=== PATIENT | male | born 1990 | race Caucasian/White ===

== ENCOUNTER 2020-01-17 13:32 | Emergency (ER) | payer BC ==
[~2020-01-17] VITALS: Ht 175.3 cm; Wt 90.3 kg
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
[2020-01-17] MEDS ORDERED: PROPOFOL 200 MG/20 ML VIAL IV ONE ×2 (14:30→15:30)
[2020-01-17] MEDS ORDERED: HYDROMORPHONE INJ 2 MG/ML DISP.SYRIN IM ONE (14:30)
[2020-01-17] MEDS ORDERED: PROPOFOL 20 ML IV ONE (14:36)
[2020-01-17] MEDS ORDERED: HYDROMORPHONE 1 MG/1 ML DISP.SYRIN ONE (14:37)
--- NOTE | 2020-01-17 14:40 | NUR ---
PATIENT PREPARED FOR MODERATE SEDATION, VERBAL CONSENT PROVIDED BY PATIENT, HE'S UNABLE TO MOVE HIS HANDS. WITNESSED BY 2 RN'S.
--- NOTE | 2020-01-17 15:00 | NUR ---
PATIENT TOLERATED PROCEDURE WELL. BOTH ARMS ARE ON SPLINT. APPLIED SLING ON RIGHT ELBOW.
--- NOTE | 2020-01-17 15:05 | NUR ---
PATIENT A/OX4, VERBALLY RESPONSIVE. NO DISTRESS NOTED.
--- NOTE | 2020-01-17 15:20 | NUR ---
PAGED DR ROY
--- NOTE | 2020-01-17 16:26 | NUR ---
PATIENT AWAKE, ALERT AND ORIENTED X4, BREATHING EVEN AND UNLABORED, NO SOB NOTED. NEEDS ATTENDED. IV removed. Catheter intact and site benign. Pressure and 4x4 applied to site. No bleeding noted. Patient discharged to home in stable condition. Written and verbal after care instructions given. Patient verbalizes understanding of instruction.
[2020-01-17 16:38] VITALS: BP 134/85
== END 2020-01-17 16:38 | disposition home or self-care (01) ==
LOC: ER 13:45
DX: S52.572A Other intraarticular fracture of lower end of left radius, initial encounter for closed fracture (principal); S42.401A Unspecified fracture of lower end of right humerus, initial encounter for closed fracture; S52.611A Displaced fracture of right ulna styloid process, initial encounter for closed fracture; S62.111A Displaced fracture of triquetrum [cuneiform] bone, right wrist, initial encounter for closed fracture; V23.4XXA Motorcycle driver injured in collision with car, pick-up truck or van in traffic accident, initial encounter; Y92.481 Parking lot as the place of occurrence of the external cause; Z20.828 Contact with and (suspected) exposure to other viral communicable diseases; M25.462 Effusion, left knee
CPT/HCPCS: 24600; 25605; 73070 ×2; 73100 ×2; 73110; 73564; 87426; 96374; 99152; 99285; C9803; J1170; J2704; J7030 ×2; G0500

== ENCOUNTER 2020-01-21 13:42 | Inpatient (IN) | payer BC ==
[~2020-01-21] VITALS: Ht 175.3 cm; Wt 83.0 kg
--- NOTE | 2020-01-21 13:56 | NUR ---
PT aox4. pt sent by Dr. Chau (ortho) for pre op, scheduled surgery tomorrow. no c/o pain at this time. awaiting for MD echols
[2020-01-21] MEDS ORDERED: HYDR-4384 PO (14:07)
[2020-01-21 14:44] LABS: BASOPHILS % (AUTO) 0.4 % (0.0-2.0); EOSINOPHILS % (AUTO) 2.1 % (0.0-6.0); HEMATOCRIT 39 % (39-51); HEMOGLOBIN 13.2 g/dL (13.5-17.5); LYMPHOCYTES # (AUTO) 1.3 /CMM (0.8-4.8); LYMPHOCYTES % (AUTO) 18.9 % (20.0-44.0); MEAN CORPUSCULAR HGB CONC 34 g/dl (31.0-36.0); MEAN CORPUSCULAR VOLUME 86 fL (80-96); MONOCYTES # (AUTO) 0.6 /CMM (0.1-1.30); MONOCYTES % (AUTO) 9.2 % (2.0-12.0); NEUTROPHILS # (AUTO) 4.7 /CMM (1.8-8.9); NEUTROPHILS % (AUTO) 69.4 % (43.0-81.0); PLATELET COUNT (AUTO) 315 /CMM (150-450); RED BLOOD CELL COUNT(AUTO) 4.49 MIL/uL (4.5-6.0); WHITE BLOOD COUNT (AUTO) 6.8 K/uL (4.3-11.0)
[2020-01-21 14:49] LABS: CALCIUM, SERUM 8.7 mg/dL (8.5-10.1); CREATININE 0.9 mg/dL (0.6-1.3); POTASSIUM 4.2 mmol/L (3.5-5.1)
[2020-01-21] MEDS ORDERED: MAG HYDROX/AL HYDROX/SIMETH 30 ML UDC PO PRN (15:00)
[2020-01-21] MEDS ORDERED: MAGNESIUM HYDROXIDE 30 ML UDC PO PRN (15:00)
[2020-01-21] MEDS ORDERED: ONDANSETRON HCL/PF 4 MG/2 ML VIAL IVP PRN (15:00)
[2020-01-21] MEDS ORDERED: TEMAZEPAM 15 MG CAPSULE PO PRN (15:00)
[2020-01-21] MEDS ORDERED: Z GUARD REMEDY 2 OZ OINT TP PRN (15:00)
[2020-01-21] MEDS ORDERED: ACETAMINOPHEN 325 MG TABLET PO PRN (15:00)
--- NOTE | 2020-01-21 16:04 | NUR ---
pt in bed, comfortable. no c/o pain or discomfort at this time. all needs attended
--- NOTE | 2020-01-21 16:54 | NUR ---
covid swab test done and sent to lab
--- NOTE | 2020-01-21 17:40 | NUR ---
Patient will go to [facility]
[2020-01-21] MEDS ORDERED: ENOXAPARIN SODIUM 40 MG/0.4 ML DISP.SYRIN SQ SCH (17:51)
--- NOTE | 2020-01-21 17:56 | NUR ---
REPORT GIVEN TO SELENE ALEMAN FOR [facility] 314-2
--- NOTE | 2020-01-21 18:10 | NUR ---
RN NOTES RECEIVED PATIENT FROM E.R, ABLE TO MAKE NEEDS KNOWN. A/O X4. ROOM AIR WITH NO SIGNS OF DISTRESS NOTED AT THIS TIME. PATIENT ORIENTED TO ROOM, UNIT AND STAFF. IV ACCESS ON LEFT AC#20, SL. SAFETY MEASURES INITIATED, BED PLACED IN LOWEST LOCKED POSITION WITH SIDE RAILS UP X2. CALL LIGHT PLACE WITHIN EASY REACH. WILL ENDORSE TO MEAT AND SEAFOOD CLERK NURSE FOR ADMISSION.
[2020-01-21] MEDS: HYDROCODONE/APAP 10/325MG TABLET PO PRN ×2 (18:12→23:06)
[2020-01-21 20:00] VITALS: BP 141/82
[2020-01-21 20:30] VITALS: BP 150/80
[2020-01-21] MEDS: IV NS 0.9% 1,000 ML IV PRN (21:28)
--- NOTE | 2020-01-21 23:16 | NUR ---
MS/TELE/RN LOVENOX NOT ADMINISTERED PATIENT WILL HAVE SURGERY IN THE MORNING.
[2020-01-22] VITALS (7 sets, daily range): BP systolic 142–153; BP diastolic 75–88
--- NOTE | 2020-01-22 02:03 | NUR ---
MS/TELE/RN PATIENT IS SLEEPING AT THIS TIME, APPEAR COMFORTABLE, NO SIGNS OF DISTRESS NOTED, CALL LIGHT IN REACH, WILL CONTINUE TO MONITOR.
--- NOTE | 2020-01-22 06:07 | NUR ---
MS/TELE/RN PATIENT IS STILL SLEEPING AT THIS TIME, APPEAR COMFORTABLE, NO SIGNS OF DISTRESS NOTED, CALL LIGHT IN REACH, ALL NEEDS ATTENDED AT THIS TIME, WILL CONTINUE TO MONITOR.
[2020-01-22 06:49] LABS: BASOPHILS % (AUTO) 0.5 % (0.0-2.0); EOSINOPHILS % (AUTO) 2.9 % (0.0-6.0); HEMATOCRIT 33 % (39-51); HEMOGLOBIN 11.4 g/dL (13.5-17.5); LYMPHOCYTES # (AUTO) 1.7 /CMM (0.8-4.8); LYMPHOCYTES % (AUTO) 28.2 % (20.0-44.0); MEAN CORPUSCULAR HGB CONC 35 g/dl (31.0-36.0); MEAN CORPUSCULAR VOLUME 86 fL (80-96); MONOCYTES # (AUTO) 0.6 /CMM (0.1-1.30); MONOCYTES % (AUTO) 9.8 % (2.0-12.0); NEUTROPHILS # (AUTO) 3.6 /CMM (1.8-8.9); NEUTROPHILS % (AUTO) 58.6 % (43.0-81.0); PLATELET COUNT (AUTO) 294 /CMM (150-450); RED BLOOD CELL COUNT(AUTO) 3.82 MIL/uL (4.5-6.0); WHITE BLOOD COUNT (AUTO) 6.1 K/uL (4.3-11.0)
[2020-01-22 07:05] LABS: CALCIUM, SERUM 7.9 mg/dL (8.5-10.1); CREATININE 0.8 mg/dL (0.6-1.3); PHOSPHORUS 3.7 mg/dL (2.5-4.9); POTASSIUM 3.6 mmol/L (3.5-5.1)
--- NOTE | 2020-01-22 07:30 | NUR ---
RN NOTE THE PATIENT IS RECEIVED IN BED. THE PATIENT IS ALERT AND ORIENTED X4. DENIES PAIN. IN ROOM AIR AND DENIES SOB. RESPIRATION REGULAR AND UNLABORED. LAC G 18 PATENT AND NS INFUSING AT 75ML/HR AND NO S/S INFILTRATION NOTED. BOTH ARM ON SLINGS. BOTH HANDS ARE SWOLLEN BUT THE PATIENT DENIES NUMBING OR TINGLING SENSATION. BED LOW AND LOCKED. SIDE RAILS UP X2. CALL LIGHT WITHIN REACH. WILL CONTINUE TO MONITOR.
[2020-01-22] MEDS: IV NS 0.9% 1,000 ML IV PRN (10:08)
[2020-01-22] MEDS: PANTOPRAZOLE 40 MG VIAL IV SCH (10:12)
[2020-01-22] MEDS: HYDROMORPHONE 1 MG/1 ML DISP.SYRIN IV PRN ×2 (10:13→19:23)
--- NOTE | 2020-01-22 12:20 | NUR ---
RN NOTE THE PATIENT IS TAKEN TO OR BY THE OR TEAM. THE PATIENT LEFT THE UNIT IN STABLE CONDITION.
[2020-01-22] MEDS ORDERED: HYDROMORPHONE INJ 2 MG/ML DISP.SYRIN ONE ×2 (12:24→17:48)
[2020-01-22] MEDS ORDERED: MIDAZOLAM HCL 2 MG/2ML VIAL ONE (12:25)
[2020-01-22] MEDS ORDERED: BACITRACIN 50000 UNITS/VIAL ONE (12:26)
[2020-01-22] MEDS ORDERED: BUPIVACAINE 0.5 % PF 150 MG/30 ML VIAL ONE (12:26)
[2020-01-22] MEDS ORDERED: BUPIVACAINE 0.25% 75 MG/30 ML VIAL ONE (13:38)
[2020-01-22] MEDS ORDERED: HEMOSTATIC MATRIX 8 ML 1 EACH PAD MC ONE (16:11)
--- NOTE | 2020-01-22 17:59 | NUR ---
RN NOTE RECEIVED A CALL ORTHO ELEN REYNAGA STATING THAT NOW THE PATIENT A WOUND VAC AND THE WOUND VAC NOT TO BE REMOVED OR CHANGED BY NURSES.
--- NOTE | 2020-01-22 18:55 | NUR ---
RN NOTE THE PATIENT IS BACK FROM SURGERY. ALERT AND ORIENTED X4. DENIES SOB. RESPIRATION REGULAR AND UNLABORED. LEFT FOOT G20 IV PATENT AND NS INFUSING AT 75ML/HR AND NO S/S INFILTRATION NOTED. WOUND VAC ON RIGHT ARM FUNCTIONING WELL WITH 100 ML OF SEROSANGUINEOUS OUTPUT. BED LOW AND LOCKED. SIDE RAILS UP X3. CALL LIGHT WITHIN REACH. WILL ENDORSE TO SUPERVISOR PROCESS TESTING
--- NOTE | 2020-01-22 20:02 | NUR ---
MS/TELE/RN RECEIVED PATIENT ON BED S/P ORIF RT. ELBOW FRACTURE AND ORIF LEFT WRIST FRACTURE DONE TODAY. PATIENT IS AWAKE, SLEEPY, APPEAR COMFORTABLE, WITH TOLERABLE PAIN LEVEL AT THIS TIME, JUST RECEIVED PAIN MEDICATION GIVEN BY DAY SHIFT RN, NO DISTRESS NOTED, BILATERAL UPPER EXTREMITIES SLING, WOUND VAC TO RT. UPPER EXTREMITY WITH SANGUINEOUS OUTPUT. WILL MONITOR PER POST OF PROTOCOL.
[2020-01-22] MEDS: ANCEF 1 GM/50 ML D5W IV SCH ×4 (21:18→22:23)
[2020-01-22] MEDS: oxyCODONE/APAP (5/325 MG) 1 UDTAB TABLET PO PRN (21:46)
[2020-01-23] VITALS: BP 146/77
[2020-01-23] MEDS: MORPHINE SULFATE INJ 4 MG/ML DISP.SYRIN IV PRN ×2 (02:14→12:31)
[2020-01-23 03:52] VITALS: BP 146/86
[2020-01-23] MEDS: ANCEF 1 GM/50 ML D5W IV SCH ×4 (06:02→06:38)
[2020-01-23] MEDS: oxyCODONE/APAP (5/325 MG) 1 UDTAB TABLET PO PRN ×4 (06:08→20:32)
[2020-01-23] MEDS: IV NS 0.9% 1,000 ML IV PRN ×2 (06:10→20:19)
--- NOTE | 2020-01-23 06:11 | NUR ---
MS/TELE/RN MORNING CARE DONE, PATIENT WAS ABLE TO SIT ON CHAIR AT BEDSIDE WHILE DOING THE BED. BROUGHT BACK TO BED, MADE COMFORTABLE IN BED, TOLERATED WELL, BED ALARM ON. PATIENT IS AWAKE, ALERT, NO CHANGE IN CONDITION, ALL NEEDS ATTENDED AT THIS TIME, WILL CONTINUE TO MONITOR.
--- NOTE | 2020-01-23 07:30 | NUR ---
MS/RN OPENING NOTES Received patient resting in bed, A&O x 4. Denies any pain and discomfort at this time. Breathing even and non-labored on RA. No respiratory or cardiac distress noted. IV access noted on L foot #20, patent and intact, and flushing well. BUE slings in place, both hands slightly still swollen, no tingling or numbness reported. Sensation from all peripheral extremities intact. Bed locked to its lowest position, bed alarm on, side rails x 2 up, call light in hand. Will continue current medical management. Addendum: 01/23/20 at 0738 by NERY BROOKS RN Wound vac noted with sanguinous drainage. Will continue to monitor. Addendum: 01/23/20 at 1924 by NERY BROOKS RN serosanguinous drainage, not sanguinous
[2020-01-23] MEDS: PANTOPRAZOLE 40 MG VIAL IV SCH (08:57)
[2020-01-23] MEDS: ENOXAPARIN SODIUM 40 MG/0.4 ML DISP.SYRIN SQ SCH (08:59)
[2020-01-23 09:18] VITALS: BP 146/88
[2020-01-23] MEDS: HYDROCODONE/APAP 10/325MG TABLET PO PRN (10:13)
--- NOTE | 2020-01-23 11:00 | NUR ---
MS/RN NOTE Dr. Chau at bedside, states patient will go back to OR later this week to remove wound vac and close incision, may be discharged on Tuesday.
--- NOTE | 2020-01-23 12:27 | NUR ---
MS/RN NOTE Patient reports 11/18 aching pain on BLE, requested percocet 5-325: 2 tablets q4h as needed for pain (8-01/18) initially. But changed his mind and would rather take morphine 4 mg q4h IV as needed for breakthrough pain. Returned percocet 5-325 at the return bin, witnessed by [facility] RN.
[2020-01-23 13:03] LABS: BASOPHILS % (AUTO) 0.2 % (0.0-2.0); EOSINOPHILS % (AUTO) 0.5 % (0.0-6.0); HEMATOCRIT 30 % (39-51); HEMOGLOBIN 10.5 g/dL (13.5-17.5); LYMPHOCYTES # (AUTO) 1.3 /CMM (0.8-4.8); LYMPHOCYTES % (AUTO) 14.3 % (20.0-44.0); MEAN CORPUSCULAR HGB CONC 35 g/dl (31.0-36.0); MEAN CORPUSCULAR VOLUME 86 fL (80-96); MONOCYTES # (AUTO) 1.4 /CMM (0.1-1.30); MONOCYTES % (AUTO) 14.6 % (2.0-12.0); NEUTROPHILS # (AUTO) 6.5 /CMM (1.8-8.9); NEUTROPHILS % (AUTO) 70.4 % (43.0-81.0); PLATELET COUNT (AUTO) 331 /CMM (150-450); RED BLOOD CELL COUNT(AUTO) 3.51 MIL/uL (4.5-6.0); WHITE BLOOD COUNT (AUTO) 9.3 K/uL (4.3-11.0)
[2020-01-23 13:39] LABS: ALBUMIN 2.9 g/dL (3.4-5.0); CALCIUM, SERUM 8.2 mg/dL (8.5-10.1); CREATININE 0.9 mg/dL (0.6-1.3); POTASSIUM 3.9 mmol/L (3.5-5.1); TOTAL PROTEIN, SERUM 6.3 g/dL (6.4-8.2)
[2020-01-23 16:10] VITALS: BP 161/74
--- NOTE | 2020-01-23 19:22 | NUR ---
MS/RN CLOSING NOTES Patient sleeping in bed, A&O x 4. All needs met and attended to. VSS, afebrile, no SOB noted. Denies any pain and discomfort at this time, given percocet at 1632. Breathing even and non-labored on RA. No respiratory or cardiac distress noted. IV access noted on L foot #20, patent and intact, and flushing well. BUE slings remain in place, both hands slightly still swollen, no tingling or numbness reported. Right elbow remains at 90 degrees. Wound vac in place, 200 mL serosanguinous output today. Sensation from all peripheral extremities intact. Fall precautions maintained. Will endorse to handyman nurse.
--- NOTE | 2020-01-23 19:45 | NUR ---
RN OPENING NOTES PATIENT RECEIVED RESTING IN BED A/O X 4. STABLE ON RA WITH BREATHING EVEN AND UNLABORED, NO SOB NOTED. NO SIGNS OF ACUTE DISTRESS. NO COMPLAINTS OF PAIN OR DISCOMFORT AT THE MOMENT. IV LOCATED ON L FOOT #20 RUNNING NS @ 75 ML/HR. WOUND VAC NOTED AND IN PLACE ON R ELBOW. BOTH UPPER EXTREMITIES NWB. SAFETY PRECAUTIONS IN PLACE WITH BED IN LOWEST POSITION, CALL LIGHT WITHIN REACH, BREAKS ON, SIDE RAILS UP. WILL CONTINUE TO MONITOR THROUGHOUT THE NIGHT.
[2020-01-23 20:00] VITALS: BP 155/89
[2020-01-24] MEDS: oxyCODONE/APAP (5/325 MG) 1 UDTAB TABLET PO PRN ×5 (00:41→23:54)
--- NOTE | 2020-01-24 06:48 | NUR ---
RN CLOSING NOTES PATIENT RESTING IN BED A/O X 4. STABLE ON RA WITH BREATHING EVEN AND UNLABORED, NO SOB NOTED. NO SIGNS OF ACUTE DISTRESS. NO COMPLAINTS OF PAIN OR DISCOMFORT AT THE MOMENT. IV LOCATED ON L FOOT #20 RUNNING NS @ 75 ML/HR. WOUND VAC NOTED AND IN PLACE ON R ARM TOTAL OF 350 SERASANGEOUS OUTPUT. BOTH UPPER EXTREMITIES NWB. SAFETY PRECAUTIONS IN PLACE WITH BED IN LOWEST POSITION, CALL LIGHT WITHIN REACH, BREAKS ON, SIDE RAILS UP. PAIN MANAGEMENT THROUGHOUT THE NIGHT. ALL NEEDS ATTENDED TO. WILL ENDORSE TO ONCOMING SHIFT ABOUT MANUEL.
--- NOTE | 2020-01-24 07:25 | NUR ---
MS/RN OPENING NOTES RECEIVED PATIENT IN BED SLEEPING EASILY AROUSABLE BY NAME AND LIGHT TOUCH. PATIENT IN NO APPARENT RESPIRATORY DISTRESS NOTED. DENIES PAIN AT THIS TIME. WILL CONTINUE TO MONITOR.
[2020-01-24 08:00] VITALS: BP 154/91
[2020-01-24] MEDS: PANTOPRAZOLE 40 MG VIAL IV SCH (08:41)
[2020-01-24] MEDS: ENOXAPARIN SODIUM 40 MG/0.4 ML DISP.SYRIN SQ SCH (08:42)
[2020-01-24] MEDS: IV NS 0.9% 1,000 ML IV PRN (09:39)
[2020-01-24 10:40] VITALS: BP_SYST 136; BP_SYST 155; BP_DIAS 78; BP_DIAS 84
[2020-01-24 10:45] VITALS: BP 145/81
--- NOTE | 2020-01-24 12:16 | NUR ---
MS/RN NOTES PATIENT COMPLAINED OF PAIN RATED 8/10 PERCOCET 5/325 MG 2 TABS. WILL CONTINUE TO MONITOR.
[2020-01-24 16:00] VITALS: BP 138/83
--- NOTE | 2020-01-24 18:52 | NUR ---
MS/RN CLOSING NOTES PATIENT IS ON BED AWAKE, ALERT AND ORIENTED X4. PATIENT IN NO APPARENT RESPIRATORY DISTRESS NOTED. PATIENT DENIES PAIN AT THIS TIME. IV ACCESS AT LEFT AC # 20 G WITH IV FLUID OF NS 1L AT 75 ML/HR ON AND INFUSING WELL. SEEN AND EXAMINED BY MD WITH ORDERS MADE AND CARRIED OUT. SAFETY PRECAUTIONS WAS IN PLACED. BED IN LOWEST POSITION AND LOCKED. SIDERAILS UP X2. CALL LIGHT WITHIN REACH. WILL ENDORSED TO VALVE TECHNICIAN FOR MANUEL. WILL ENDORSED TO VALVE TECHNICIAN FOR MANUEL.
--- NOTE | 2020-01-24 19:30 | NUR ---
RN NOTES RECEIVED PT. AWAKE ON BED, AOX4, BILATERAL ARM WITH DRESSING AND SLING, WOUND VAC IN PLACE, NOT IN DISTRESS, DENIES PAIN AT THIS TIME,NO SOB, SIDERAILSUPX2, CONTINUE TO MONITOR
[2020-01-24 20:12] VITALS: BP 181/96
[2020-01-24] MEDS: MORPHINE SULFATE INJ 4 MG/ML DISP.SYRIN IV PRN (21:21)
--- NOTE | 2020-01-24 21:24 | NUR ---
RN NOTES COMPLAINED OF RIGHT ARM PAIN- MORPHINE 4 MG IV GIVEN ORDERED, V/S STABLE
--- NOTE | 2020-01-24 23:55 | NUR ---
RN NOTES COMPLAINED OF BILATERAL ARM PAIN- PERCOCET 2 TABS PO GIVEN ORDERED, V/S STABLE
[2020-01-25] MEDS: IV NS 0.9% 1,000 ML IV PRN ×2 (02:40→21:15)
[2020-01-25] MEDS: MORPHINE SULFATE INJ 4 MG/ML DISP.SYRIN IV PRN (06:00)
--- NOTE | 2020-01-25 06:09 | NUR ---
RN NOTES COMPLAINED OF BILATERAL ARM PAIN-MORPHINE 4MG IV GIVEN ORDERED, V/S STABLE
--- NOTE | 2020-01-25 06:43 | NUR ---
RN NOTES SLEEPING BUT AROUSABLE, NOT IN DISTRESS, DENIES PAIN AT THIS TIME, NO SOB,CALL LIGHT WITHIN REACH, SIDERIALSUPX2, PT.NEEDS ATTENDED
--- NOTE | 2020-01-25 07:27 | NUR ---
MS/RN OPENING NOTES PATIENT IS ON BED AWAKE ALERT AND ORIENTED X4. PATIENT DENIES PAIN AT THIS TIME. PATIENT IN NO APPARENT RESPIRATORY DISTRESS NOTED. WILL CONTINUE TO MONITOR.
[2020-01-25] MEDS: ENOXAPARIN SODIUM 40 MG/0.4 ML DISP.SYRIN SQ SCH (09:00)
[2020-01-25] MEDS: PANTOPRAZOLE 40 MG TABLET.DR PO SCH (09:00)
--- NOTE | 2020-01-25 09:30 | NUR ---
WOUND CARE: PT HAS [employer]CI VAC TO RT ARM WITH NEARLY FULL CANISTER 475cc SEROSANGUINOUS DRAINAGE. CANISTER CHANGED. RN NOTIFIED AND SURGEON TO BE NOTIFIED BY WOUND RN. WILL SEE PRN.
--- NOTE | 2020-01-25 09:49 | NUR ---
RENEWABLE ENERGY BROKER RENEWABLE ENERGY BROKER SPOKE TO BARAK IN SURGERY, SHE WILL LET DR ROY KNOW THAT PATIENT'S VAC CANNISTER WAS CHANGED THIS AM, THE SAME CANNISTER THAT WAS PLACED IN OR 01/23/20 AND THE DRNG AMOUNT WAS 475ML'S OF THIS AM.
[2020-01-25] MEDS ORDERED: ANESTHESIA TRAY IN PYXIS 1 EA TRAY MC ONE (11:08)
[2020-01-25] MEDS ORDERED: BUPIVACAINE 0.5 % PF 150 MG/30 ML VIAL ONE (11:10)
[2020-01-25] MEDS ORDERED: BACITRACIN 50000 UNITS/VIAL ONE (11:10)
--- NOTE | 2020-01-25 11:47 | NUR ---
MS/RN NOTES PATIENT IS OUT IN THE UNIT. CHIEF OPERATOR BY OR NURSE. PATIENT IS IN STABLE CONDITION. PATIENT IN NO APPARENT RESPIRATORY DISTRESS NOTED. DENIES PAIN.
[2020-01-25] MEDS ORDERED: HYDROMORPHONE INJ 2 MG/ML DISP.SYRIN ONE (11:54)
[2020-01-25] MEDS ORDERED: MIDAZOLAM HCL 2 MG/2ML VIAL ONE (11:54)
--- NOTE | 2020-01-25 13:40 | NUR ---
MS/RN NOTES PATIENT CAME BACK FROM PACU, RECEIVED REPORT FROM DEBBI MORTON. RESUME PREOP ORDER DIET, ANCEF 1 GM IVPB EVERY 8 HOURS X 3 DOSES, NO WEIGHT BEARING RUE/LUE, ELEVATE, LEAVE IN SLING AT ALL TIMES, WOUND VAC CHANGE Tuesday BY WOUND CARE. NOTED AND CARRIED OUT.
[2020-01-25] MEDS ORDERED: CEFAZOLIN 1 GM VIAL IV SCH (17:00)
--- NOTE | 2020-01-25 18:42 | NUR ---
MS/RN CLOSING NOTES PATIENT IS ON BED. ALERT AND ORIENTED X4. PATIENT DENIES PAIN AT THIS TIME. IV ACCESS AT LEFT FOOT # 20 WITH IV FLUID OF NS 1L AT 75 ML/HR ON AND INFUSING WELL. SEEN AND EXAMINED BY MD WITH ORDERS MADE AND CARRIED OUT. SAFETY PRECAUTION WAS IN PLACED. BED IN LOWEST POSITION AND LOCKED. SIDERAILS UP X2. CALL LIGHT WITHIN REACH. PATIENT IS POSSIBLE DISCHARGED TODAY. WILL ENDORSED TO PAROLE OFFICER FOR MANUEL.
--- NOTE | 2020-01-25 19:30 | NUR ---
MS RN RECEIVE PT IN BED, AWAKE, STABLE A/O X 4 NOT IN DISTRESS, WOUND VAC ONGOING, CONT NO WT BEARING RUE/LUE, ELEVATE SLING AT ALL TIMES. DENIES PAIN AT THIS TIME. EDUCATED PT. SAFETY MEASURES AT ALL TIMES. WILL CONT TO MONITOR
[2020-01-25 20:00] VITALS: BP 152/80
[2020-01-25 20:13] VITALS: BP 152/80
[2020-01-25] MEDS: ANCEF 1 GM/50 ML D5W IV SCH ×2 (21:06)
[2020-01-25] MEDS: oxyCODONE/APAP (5/325 MG) 1 UDTAB TABLET PO PRN (22:03)
[2020-01-26] MEDS: ANCEF 1 GM/50 ML D5W IV SCH ×4 (05:18→13:10)
--- NOTE | 2020-01-26 06:11 | NUR ---
MS RN PT MONITORED ACCORDINGLY, WOUND VAS ORDERED WITH 175ML OUTPUT. ALL NEEDS ATTENDED AND ANTICIPATED, KEPT CLEAN, DRY AND COMFORTABLE. NURSING CARE RENDERED, CONT NWB RUE/LUE AT ALL TIMES,. NO S/S OF IMPAIRED CIRCULATION. 02 SAT WNL R.A. AFEBRILE, DENIES PAIN AT THIS TIME. SAFETY MEASURES AT ALL TIMES. WILL ENDORSE TO NEXT SHIFT.
--- NOTE | 2020-01-26 07:10 | NUR ---
MS RN OPENING NOTES RECEIVED PT AWAKE IN BED IN NO ACUTE SIGNS OF DISTRESS. A/O X 4. ABLE TO MAKE NEEDS KNOWN, DENIES PAIN OR ANY DISCOMFORTS AT THIS TIME. IV ACCESS ON LEFT FOOT G #20 INTACT AND PATENT, IVF OF NS @ 75ML/HR INFUSING WELL. DRESSING ON BOTH ARMS C/D/I. SLINGS IN PLACE AND WOUND VAC ON RIGHT ARM ONGOING. SAFETY MEASURES IN PLACE. BED IN LOWEST LOCKED POSITION W/ SR UP X2. CALL LIGHT W/IN REACH. WILL CONT TO MONITOR
[2020-01-26 08:00] VITALS: BP 137/89
[2020-01-26] MEDS: PANTOPRAZOLE 40 MG TABLET.DR PO SCH (08:09)
[2020-01-26] MEDS: oxyCODONE/APAP (5/325 MG) 1 UDTAB TABLET PO PRN ×3 (08:09→22:20)
[2020-01-26] MEDS: ENOXAPARIN SODIUM 40 MG/0.4 ML DISP.SYRIN SQ SCH (08:10)
--- NOTE | 2020-01-26 08:13 | NUR ---
RN NOTES PT C/O ACHING AND SHARP PAIN ON HIS RIGHT AND LEFT ARM WITH SCALE OF 8/10. PRN PERCOCET 5/325MG X2 TABS GIVEN AT 0809. WILL CONTINUE TO MONITOR AND REASSESS PT.
--- NOTE | 2020-01-26 10:51 | NUR ---
RN NOTES WOUND VAC CANISTER NOTED FULL WITH SANGUINOUS DRAINAGE. CANISTER CHANGED AND CONTINUES ON WOUND VAC AT PRESCRIBED SETTINGS. WILL CONTINUE TO MONITOR.
--- NOTE | 2020-01-26 15:49 | NUR ---
RN NOTES PT C/O ACHING AND SHARP PAIN ON B/L ARMS WITH SCALE OF 8/10. PRN PERCOCET 5/325MG X2 TABS GIVEN AT 1547. WILL CONTINUE TO MONITOR AND REASSESS PT.
[2020-01-26 16:00] VITALS: BP 126/90
--- NOTE | 2020-01-26 18:39 | NUR ---
MS RN CLOSING NOTES PT SITTING ON CHAIR BY BEDSIDE AT THIS TIME. A/O X 4. ABLE TO MAKE NEEDS KNOWN. ON ROOM AIR, BREATHING EVEN AND UNLABORED, NO SOB NOTED THROUGHOUT THE DAY. IV ACCESS ON LEFT FOOT G #20 INTACT AND PATENT, IVF OF NS @ 75ML/HR INFUSING WELL, NO S/S OF INFILTRATION AT SITE NOTED. DRESSING ON BOTH ARMS C/D/I. SLINGS IN PLACE TO BOTH ARMS. WOUND VAC ON RIGHT ARM IN PROGRESS AND NOTED WITH SANGUINOUS DRAINAGE, OUTPUT RECORDED. ALL NEEDS AND CARE ATTENDED WELL. SAFETY MEASURES IN PLACE: CALL LIGHT W/IN REACH. WILL ENDORSE MANUEL TO INCOMING NIGHT NURSE.
--- NOTE | 2020-01-26 19:30 | NUR ---
RN OPENING NOTE RECEIVED PATIENT SEATED AT CHAIR, A0 X 4, COMPLAINTS OF TOLERABLE LEVEL OF PAIN, NO S/SX OF ACUTE DISTRESS AT THIS TIME. NO SOB NOTED. PATIENT'S BREATHING IS EVEN AND UNLABORED, SATURATING 99% ON ROOM AIR, HR IS 75. NOTED IV SITE AT LEFT FOOT G20 WITH NS AT 75 ML/HR, IV LINE PATENT AND FLUSHING WELL, NO S/S OF INFECTION OR INFILTRATION. RIGHT ARM WOUND VAC INTACT, LEFT HAND POST OP WOUND DRESSING DRY AND INTACT, ARM SLING MAINTAINED AT ALL TIMES. PATIENT IS AMBULATORY BUT NEEDS ASSISTANCE WITH URINATION. SAFETY MEASURES IMPLEMENTED PER PROTOCOL. HEAD OF BED ELEVATED. BED IS LOCKED, IN LOWEST POSITION AND SIDE RAILS UP. CALL LIGHT WITHIN REACH OF THE PATIENT. NON WEIGHT BEARING OF BUE MAINTAINED. WILL CONTINUE TO MONITOR AND REASSESS FOR ANY CHANGES.
[2020-01-26 20:00] VITALS: BP 150/80
[2020-01-27] MEDS: IV NS 0.9% 1,000 ML IV PRN (04:40)
--- NOTE | 2020-01-27 07:30 | NUR ---
MS RN NOTES PATIENT RECEIVED IN BED, ALERT AND ORIENTED X4. ON ROOM AIR WITH NO SIGNS OF RESPIRATORY DISTRESS WITH NON-LABORED EVEN BREATHING, AND NO SOB NOTED. SKIN WARM AND DRY TO TOUCH, BILATERAL SLINGS IN PLACE. IV ACCESS INTACT AND PATENT ON LEFT FOOT, INFUSING IV FLUIDS AT 75ml/hr. WOUND VAC IN PLACE, WITH 300mL, OUTPUT. PATIENT PRESENTS WITH NO SIGNS OF PAIN OR DISCOMFORT AT THIS TIME. SAFETY PRECAUTIONS IN PLACE WITH BED LOCKED, BED IN THE LOWEST POSITION, BILATERAL SIDE RAILS UP, BED ALARM ON, AND CALL LIGHT WITHIN EASY REACH. WILL CONTINUE TO MONITOR PATIENT.
[2020-01-27 08:00] VITALS: BP 164/99
[2020-01-27] MEDS: PANTOPRAZOLE 40 MG TABLET.DR PO SCH (08:25)
[2020-01-27] MEDS: ENOXAPARIN SODIUM 40 MG/0.4 ML DISP.SYRIN SQ SCH (08:26)
[2020-01-27] MEDS: oxyCODONE/APAP (5/325 MG) 1 UDTAB TABLET PO PRN ×2 (08:27→18:10)
[2020-01-27 08:31] VITALS: BP 164/99
[2020-01-27 11:30] VITALS: BP 141/79
[2020-01-27 16:56] VITALS: BP 163/88
--- NOTE | 2020-01-27 18:35 | NUR ---
MS RN NOTES PATIENT IN BED RESTING COMFORTABLY, ALERT AND ORIENTED X 4.ON ROOM AIR WITH NO SIGNS OF RESPIRATORY DISTRESS PRESENT WITH EVEN NON-LABORED BREATHING AND NO SOB NOTED. IV ACCESS INTACT AND PATENT CURRENTLY INFUSING IV FLUIDS. MET ALL OF PATIENT'S NEEDS. PATIENT PRESENTS WITH NO SIGNS OF PAIN OR DISCOMFORT AT THIS TIME. WOUND VAC SECURED IN PLACE AND PATENT WITH 400 mL STEPHANY COLOR OUTPUT. SAFETY PRECAUTIONS IN PLACE WITH BED LOCKED, BED IN THE LOWEST POSITION, BILATERAL SIDE RAILS UP, BED ALARM ON AND CALL LIGHT WITHIN EASY REACH. WILL ENDORSE PLAN OF CARE TO UPCOMING NURSE.
--- NOTE | 2020-01-27 19:50 | NUR ---
MS/RN OPENING NOTES RECEIVED PATIENT IS BED RESTING. PATIENT IS ALERT AND ORIENTED X 4. NO SIGNS OF SOB OR RESPIRATORY DISTRESS NOTED. PATIENT HAS IV ACCESS ON LEFT FOOT INTACT FLUSHING WELL. PATIENT HAS WOUND VAC IN PLACE DRAINING STEPHANY CLEAR. PATIENT STATES NO PAIN AT THIS TIME. PATIENT HAS SLINGS IN PLACE BILATERAL ARMS. SAFETY MEASURES ARE IN PLACE BED LOCKED AND IN LOW POSITION, SIDE RAILS UP X 2, CALL LIGHT WITHIN REACH. WILL CONTINUE TO MONITOR.
[2020-01-27 20:00] VITALS: BP 160/81
[2020-01-28] MEDS: IV NS 0.9% 1,000 ML IV PRN (02:53)
[2020-01-28] MEDS: MORPHINE SULFATE INJ 4 MG/ML DISP.SYRIN IV PRN (04:58)
--- NOTE | 2020-01-28 06:45 | NUR ---
MS/RN CLOSING NOTES PATIENT IS BED RESTING. PATIENT IS ALERT AND ORIENTED X 4. NO SIGNS OF SOB OR RESPIRATORY DISTRESS NOTED. PATIENT HAS IV ACCESS ON LEFT FOOT INTACT FLUSHING WELL RUNNING NS AT 75CC/HR. PATIENT HAS WOUND VAC IN PLACE DRAINING STEPHANY CLEAR, CHANGED DURING SHIFT 500CC, CURRENT OUTPUT 50CC. PATIENT STATES NO PAIN AT THIS TIME. PATIENT HAS SLINGS IN PLACE BILATERAL ARMS. SAFETY MEASURES ARE IN PLACE BED LOCKED AND IN LOW POSITION, SIDE RAILS UP X 2, CALL LIGHT WITHIN REACH. WILL ENDORSE CARE TO DAY SHIFT.
--- NOTE | 2020-01-28 07:12 | NUR ---
MS RN OPENING NOTES RECEIVED PT AWAKE, A/O X 4. ABLE TO MAKE NEEDS KNOWN, DENIES PAIN OR ANY DISCOMFORTS AT THIS TIME. ON ROOM AIR, BREATHING EVEN AND UNLABORED. IV ACCESS ON LEFT FOOT G #20 INTACT AND PATENT, IVF OF NS @ 75ML/HR INFUSING WELL, NO S/S OF INFILTRATION AT SITE NOTED. DRESSING ON BOTH ARMS C/D/I. SLINGS IN PLACE TO BOTH ARMS AND WOUND VAC ON RIGHT ARM ONGOING ORDERED. SAFETY MEASURES IN PLACE: BED IN LOWEST LOCKED POSITION W/ SR UP X2. CALL LIGHT W/IN REACH. WILL CONTINUE TO MONITOR
[2020-01-28 08:34] VITALS: BP 155/90
[2020-01-28] MEDS: PANTOPRAZOLE 40 MG TABLET.DR PO SCH (09:00)
[2020-01-28] MEDS: ENOXAPARIN SODIUM 40 MG/0.4 ML DISP.SYRIN SQ SCH ×2 (09:00→10:34)
--- NOTE | 2020-01-28 09:10 | NUR ---
WOUND CARE: PT SEEN FOR WOUND VAC DRESSING CHANGE PER DR ROY ORDER BUT PT REFUSED. PT STATED THAT HE WAS GOING TO SURGERY TODAY FOR WOUND CLOSURE (ALTHOUGH THERE IS NO ORDER TO THAT EFFECT). DR ROY CALLED BY STRADDLE TRUCK DRIVER AND PT'S RN AND MSG LEFT. TRACK PRODUCTION ENGINEER AWARE. AWAITING CALL FROM DR ROY. VAC FUNCTIONING WELL AT 125mmHg CONTINUOUS SETTING. THERE IS 80cc IN CANISTER AT THIS TIME (SEROSANGUINOUS DRAINAGE) AND FULL CANISTER WAS CHANGED AT THE CHANGE OF SHIFT THIS AM PER RN (500cc).
--- NOTE | 2020-01-28 09:13 | NUR ---
RN NOTES PT REFUSED TO EAT BREAKFAST AND TO TAKE HIS AM MEDS, SAME REFUSED TO HAVE HIS WOUND VAC DRESSING TO BE CHANGED BY WOUND NURSE DELFINA THIS MORNING. HE VERBALIZED THAT DR ROY PROMISED HIM LAST TUESDAY (01/25/20) THAT HE WILL SUTURE/CLOSE HIS WOUND ON HIS LEFT ARM TODAY BUT THERE'S NO ORDER SEEN ON THE COMPUTER. I AND WOUND NURSE DELFINA CALLED DR ROY OFFICE ( EXCHANGE), LEFT MESSAGE TO SENIOR TAX ACCOUNTANT AND SHE SAID THAT SHE WILL RELAY MESSAGE TO DR ROY. AWAITING FOR DR ROY RETURN CALL.
[2020-01-28] MEDS: oxyCODONE/APAP (5/325 MG) 1 UDTAB TABLET PO PRN ×2 (12:02→20:43)
--- NOTE | 2020-01-28 12:50 | NUR ---
WOUND CARE: RECEIVED ORDER TO CHANGE WOUND VAC DRESSING FROM DR ROY. SKIN PREP AND VAC DRAPE USED FOR PERIWOUND PROTECTION, OIL EMULSION USED FOR TENDON PROTECTION, THEN GRANUFOAM TO WOUND (ONE PIECE). VAC AT 125mmHg CONTINUOUS SETTING. DRAINAGE IN CANISTER IS SEROSANGUINOUS ORANGE/RED APPROX 100cc. ARM KEPT IN SPLINT AND WRAPPED GENTLY WITH BROOKS. PT TOLERATED WELL. Addendum: 01/28/20 at 1257 by DELFINA ROLON WNDNU WOUND MEASUREMENT RT ARM WOUND 18CM X 10CM X 0.1CM.
--- NOTE | 2020-01-28 13:51 | NUR ---
RN NOTES ASSISTED WOUND NURSE DELFINA TO CHANGE WOUND VAC DRESSING ON RIGHT ARM. PHOTO TAKEN AND FILED ON HIS CHART. WOUND VAC CONTINUES ON 125MMHG WITH SANGUINOUS DRAINAGE NOTED. WILL CONTINUE TO MONITOR.
[2020-01-28 16:00] VITALS: BP 152/88
--- NOTE | 2020-01-28 16:59 | NUR ---
RN NOTES CANDY HENSON CAME AND SPOKE TO PT THAT DR ROY WILL DO SURGICAL CLOSURE ON PT'S RIGHT ARM NOT TOMORROW BUT ON Tuesday01/31/20, NO SCHEDULE TIME YET. NPO WILL BE ENFORCED POST MIDNIGHT ON TUESDAY. WILL ENDORSE TO INCOMING NURSE.
--- NOTE | 2020-01-28 18:43 | NUR ---
MS RN CLOSING NOTES PT AWAKE AND RESTING IN BED. A/O X 4. ABLE TO MAKE NEEDS KNOWN. ON ROOM AIR, BREATHING EVEN AND UNLABORED. IV ACCESS ON LEFT FOOT G #20 INTACT AND PATENT, IVF OF NS @ 75ML/HR INFUSING WELL, NO S/S OF INFILTRATION AT SITE NOTED. DRESSING ON BOTH ARMS C/D/I. SLINGS IN PLACE TO BOTH ARMS AND WOUND VAC ON RIGHT ARM CONTINUOS AT 125 MM/HG PRESSURE WITH 100ML OF SANGUINOUS DRAINAGE NOTED THIS SHIFT. ALL NEEDS AND CARE ATTENDED WELL. SAFETY MEASURES KEPT IN PLACE: BED IN LOWEST LOCKED POSITION W/ SR UP X2. CALL LIGHT W/IN REACH. WILL ENDORSE TO PAINT SPRAYER SANDBLASTER NURSE FOR MANUEL.
--- NOTE | 2020-01-28 19:00 | NUR ---
RN MS opening notes Received Pt from morning nurse. Pt is sitting in bed comfortably watching TV. Pt is alert and orientedX4. Respiration is normal. No SOB. No S/S of distress noted. IV sites at L foot# 20 is clean, intact and infusing well NS@ 75 ml/hr. Per am nurse, Wound care nurse already changed the wound vac today. R arm wound vac at 125 mm/hg presssure is intact and draining sanguinese. L hand dressing is intact, and clean. Both slings are in placed. Safety precautions is maintained. Bed at low position, brakes locked, side railsupX2, urinal at the bed side and call light is within reach. Will continue to monitor.
[2020-01-28 20:00] VITALS: BP 140/88
--- NOTE | 2020-01-28 20:43 | NUR ---
RN MS notes Pt is complaining of pain and requesting pain meds percocet. Administered percocet 5/325/2 tabs/po as ordered for pain per pt's request. VS is stable. Safety precautions is maintained. Will continue to monitor.
[2020-01-29] MEDS: IV NS 0.9% 1,000 ML IV PRN ×2 (02:43→19:45)
[2020-01-29] MEDS: oxyCODONE/APAP (5/325 MG) 1 UDTAB TABLET PO PRN ×3 (02:50→21:09)
--- NOTE | 2020-01-29 06:49 | NUR ---
RN MS closing notes Pt is resting in bed comfortably. Pt is alert and orientedX4. Respiration is normal. No SOB. No S/S of distress noted. IV sites at L foot# 20 is clean, intact and infusing well NS@ 75 ml/hr. Vs is stable. Afebrile. R arm wound vac at 125 mm/hg pressure is intact and draining sanguinese with output 100 ml. L hand dressing is intact, and clean. R arm dressing is clean, and intact. Both slings are in placed. Kept Pt clean, dry and comfortable. All needs met and attended. Safety precautions is maintained. Bed at low position, brakes locked, side railsupX2, urinal at the bed side and call light is within reach. Will endorse to morning nurse for MANUEL.
--- NOTE | 2020-01-29 07:35 | NUR ---
WOUND CARE CONSULT: KCI VAC TO RT ARM FUNCTIONING WELL AT 125mmHg CONTINUOUS SETTING. SEROSANGUINOUS DRAINAGE IN CANISTER, APPROX 200cc AT THIS TIME. WILL FOLLOW.
--- NOTE | 2020-01-29 07:48 | NUR ---
MS RN OPENING SHIFT NOTES RECEIVED PT RESTING IN BED, A/O X4. ON RA WITH O2 SAT @ 98%. NO SOB NOTED, BREATHING EVEN AND UNLABORED. NO ACUTE RESPIRATORY DISTRESS NOTES. IV TO LT FOOT #20G RUNNING NS @75ML/HR PATENT AND INTACT NO REDNESS OR SWELLING NOTED, NO SIGNS OF INFILTRATION NOTED. RT ARM WITH WOUND VAC IN PLACE AT 125 MM/HG PRESSURE INTACT AND DRAINING DRAINGNING SANGUINEOUS FLUID. DRESSING TO LT HAND INTACT AND CLEAN. BILAT SLING IN PLACE. BED AT LOWEST POSITION WITH SIDE RAILS UP X 2 AND LOCKED. CALL LIGHT WITHIN REACH. SAFETY PRECAUTIONS IN PLACE, WILL CONTINUE TO MONITOR THROUGHOUT SHIFT. . .
[2020-01-29 08:00] VITALS: BP 151/90
[2020-01-29] MEDS: PANTOPRAZOLE 40 MG TABLET.DR PO SCH (08:55)
[2020-01-29] MEDS: ENOXAPARIN SODIUM 40 MG/0.4 ML DISP.SYRIN SQ SCH (08:56)
[2020-01-29 16:00] VITALS: BP 166/91
--- NOTE | 2020-01-29 18:17 | NUR ---
MS RN CLOSING SHIFT NOTES PATIENT RESTING IN BED, A/O X4. NO SOB NOTED, BREATHING EVEN AND UNLABORED. NO ACUTE RESPIRATORY DISTRESS NOTED. IV TO LT FOOT #20G RUNNING NS @75ML/HR PATENT AND INTACT NO REDNESS OR SWELLING NOTED, NO SIGNS OF INFILTRATION NOTED. RT ARM WITH WOUND VAC IN PLACE AT 125 MM/HG PRESSURE INTACT AND DRAINING SANGUINEOUS FLUID. DRESSING TO LT HAND INTACT AND CLEAN. BILAT SLING IN PLACE. BED AT LOWEST POSITION WITH SIDE RAILS UP X 2 AND LOCKED. CALL LIGHT WITHIN REACH. SAFETY PRECAUTIONS IN PLACE, PT IS TO BE NPO ON Tue HAVING SURGERY ON TUESDAY. CONSENT SIGNED.
--- NOTE | 2020-01-29 19:30 | NUR ---
MS RN OPENING NOTE RECEIVED PATIENT IN BED. A/OX4. TOLERATING ROOM AIR. RESPIRATIONS ARE EVEN AND UNLABORED. NO S/S SOB NOTED. NO C/O PAIN AT THIS TIME. IN NO APPARENT DISTRESS.IV ACCESS IN LEFT FOOT RUNNING NS@75ML/HR. RIGHT ARM WOUND VAC STILL DRAINING. BED IS LOW AND LOCKED, HOB ELEVATED IN SEMI FOWLERS, SIDE RIALS UP X2. TIFFANIE LIGHT WITHIN REACH. ALL PERSONAL ITEMS WITHIN REACH. WILL CONTINUE TO MONITOR.
[2020-01-29 20:00] VITALS: BP 143/83
--- NOTE | 2020-01-29 21:09 | NUR ---
MS RN NOTE ADMINISTERED PRN PERCOCET 10MG/650MG FOR PAIN IN BOTH ARMS. WILL CONTINUE TO MONITOR.
[2020-01-30 06:55] LABS: BASOPHILS % (AUTO) 0.5 % (0.0-2.0); EOSINOPHILS % (AUTO) 2.7 % (0.0-6.0); HEMATOCRIT 32 % (39-51); LYMPHOCYTES # (AUTO) 1.9 /CMM (0.8-4.8); LYMPHOCYTES % (AUTO) 23.9 % (20.0-44.0); MEAN CORPUSCULAR HGB CONC 35 g/dl (31.0-36.0); MEAN CORPUSCULAR VOLUME 86 fL (80-96); MONOCYTES # (AUTO) 0.5 /CMM (0.1-1.30); MONOCYTES % (AUTO) 6.1 % (2.0-12.0); NEUTROPHILS # (AUTO) 5.3 /CMM (1.8-8.9); NEUTROPHILS % (AUTO) 66.8 % (43.0-81.0); PLATELET COUNT (AUTO) 647 /CMM (150-450); RED BLOOD CELL COUNT(AUTO) 3.72 MIL/uL (4.5-6.0); WHITE BLOOD COUNT (AUTO) 7.9 K/uL (4.3-11.0)
[2020-01-30 07:07] LABS: CALCIUM, SERUM 9.1 mg/dL (8.5-10.1); CREATININE 0.8 mg/dL (0.6-1.3)
--- NOTE | 2020-01-30 07:49 | NUR ---
MS RN OPENING NOTE PATIENT IS A/O X 4 WITH NO SIGNS OF ACUTE DISTRESS IN ROOM AIR. NO SIGNS OF PAIN AT THIS MOMENT. IV L FOOT INTACT RUNNING AT 75 ML/HR. RIGHT ARM WOUND VAC DRAINING STARTING OUTPUT 350. SAFETY MEASURES ARE APPLIED, BED IS LOW AND LOCKED POSITION. SIDE RAILS UP X 2 FOR SAFETY. CALL LIGHT WITHIN REACH. WILL CONTINUE TO MONITOR.
--- NOTE | 2020-01-30 07:49 | NUR ---
MS RN CLOSING NOTE PATIENT RESTING IN BED. A/OX4. REMAINS TOLERATING ROOM AIR. NO RESP DISTRESS. MANAGED PAIN WITH PERCOCET. NO DISTRESS. IV ACCESS MAINTAINED IN LEFT FOOT RUNNING NS@75ML/HR. RIGHT ARM WOUND VAC STILL DRAINING, OUTPUT 50ML. BED REMAINS LOW AND LOCKED, HOB ELEVATED IN SEMI FOWLERS, SIDE RIALS UP X2. CALL LIGHT WITHIN REACH. WILL ENDORSE TO NEXT SHIFT.
[2020-01-30 08:00] VITALS: BP 165/91
--- NOTE | 2020-01-30 08:11 | NUR ---
WOUND CARE: PT HAS KCI VAC TO RT ARM, FUNCTIONING WELL AT 125mm Hg CONTINUOUS SETTING WITH SEROSANGUINOUS DRAINAGE IN CANISTER.
[2020-01-30] MEDS: ENOXAPARIN SODIUM 40 MG/0.4 ML DISP.SYRIN SQ SCH (08:46)
[2020-01-30] MEDS: PANTOPRAZOLE 40 MG TABLET.DR PO SCH (08:46)
[2020-01-30] MEDS: oxyCODONE/APAP (5/325 MG) 1 UDTAB TABLET PO PRN ×3 (08:48→23:49)
--- NOTE | 2020-01-30 09:56 | NUR ---
WOUND CARE: LEFT MSG FOR DR ROY REGARDING REQUEST TO WAIT TIL 01/31/20 FOR VAC DRESSING CHANGE DUE TO PT DISCOMFORT WITH DRESSING CHANGE DUE TO LARGE WOUND RT ARM. DISCUSSED WITH PHLEBOTOMY INSTRUCTOR AND NURSING STAFF. 350cc SEROSANGUINOUS DRAINAGE NOTED IN CANISTER SINCE DRESSING CHANGE ON 01/28/20. WILL FOLLOW.
[2020-01-30 10:00] VITALS: BP 137/76
[2020-01-30 16:00] VITALS: BP 134/85
[2020-01-30] MEDS: IV NS 0.9% 1,000 ML IV PRN (17:44)
--- NOTE | 2020-01-30 18:27 | NUR ---
MS RN OPENING NOTE PATIENT IS A/O X 4 WITH NO SIGNS OF ACUTE DISTRESS IN ROOM AIR. NO SIGNS OF PAIN AT THIS MOMENT. IV L FOOT INTACT RUNNING AT 75 ML/HR. RIGHT ARM WOUND VAC DRAINING TOTAL OUTPUT END OF SHIFT 50. NPO AT MIDNIGHT CONSENT SIGNED. PATIENT KEPT CLEAN AND DRY. ALL NEEDS, CARE, TREATMENT AND MEDICATIONS ADMINISTERED ANTICIPATED PER ORDER. SAFETY MEASURES ARE APPLIED, BED IS LOW AND LOCKED POSITION. SIDE RAILS UP X 2 FOR SAFETY. CALL LIGHT WITHIN REACH. WILL ENDORSE TO THE NEXT CAN LINE EXAMINER
--- NOTE | 2020-01-30 18:29 | NUR ---
MS RN CLOSED NOTE PATIENT IS A/O X 4 WITH NO SIGNS OF ACUTE DISTRESS IN ROOM AIR. NO SIGNS OF PAIN AT THIS MOMENT. IV L FOOT INTACT RUNNING AT 75 ML/HR. RIGHT ARM WOUND VAC DRAINING TOTAL OUTPUT END OF SHIFT 50. NPO AT MIDNIGHT CONSENT SIGNED. PATIENT KEPT CLEAN AND DRY. ALL NEEDS, CARE, TREATMENT AND MEDICATIONS ADMINISTERED ANTICIPATED PER ORDER. SAFETY MEASURES ARE APPLIED, BED IS LOW AND LOCKED POSITION. SIDE RAILS UP X 2 FOR SAFETY. CALL LIGHT WITHIN REACH. WILL ENDORSE TO THE NEXT SURGICAL GARMENT FITTER
--- NOTE | 2020-01-30 19:30 | NUR ---
MS RN OPENING NOTES RECEIVED PATIENT IN BED, ALERT AND ORIENTED X 4. VERBALLY RESPONSIVE AND ABLE TO FOLLOW DIRECTIONS. BREATHING REGULAR AND UNLABORED ON ROOM AIR. LEFT FOOT G20 IV LINE INTACT AND PATENT, INFUSING WELL WITH NO BLEEDING OR S/S OF INFILTRATION NOTED. DENIES SUICIDAL IDEATION AT THIS TIME. COMPLAINED OF RIGHT ARM PAIN, OFFERED PAIN MEDICATION BUT HE REFUSED. NON-PHARMACOLOGICAL INTERVENTIONS PROVIDED. BED LOW AND LOCKED ON SEMI FOWLERS POSITION. CALL LIGHT IN REACH. WILL CONTINUE TO MONITOR.
[2020-01-30 20:00] VITALS: BP 151/90
--- NOTE | 2020-01-31 | NUR ---
MS RN NOTES COMPLAINED OF 9/10 RIGHT ARM PAIN, PERCOCET 5/325 GIVEN BY MOUTH. NON-PHARMACOLOGICAL INTERVENTIONS PROVIDED. VITAL SIGNS WNL. ADVISED ON NOTHING BY MOUTH STARTING MIDNIGHT. WILL CONTINUE TO MONITOR.
[2020-01-31] MEDS: IV NS 0.9% 1,000 ML IV PRN ×2 (05:57→22:44)
[2020-01-31 06:43] LABS: BASOPHILS % (AUTO) 0.4 % (0.0-2.0); EOSINOPHILS % (AUTO) 2.3 % (0.0-6.0); HEMATOCRIT 31 % (39-51); HEMOGLOBIN 10.8 g/dL (13.5-17.5); LYMPHOCYTES # (AUTO) 2.7 /CMM (0.8-4.8); LYMPHOCYTES % (AUTO) 32.9 % (20.0-44.0); MEAN CORPUSCULAR HGB CONC 35 g/dl (31.0-36.0); MEAN CORPUSCULAR VOLUME 85 fL (80-96); MONOCYTES # (AUTO) 0.5 /CMM (0.1-1.30); MONOCYTES % (AUTO) 6.6 % (2.0-12.0); NEUTROPHILS # (AUTO) 4.7 /CMM (1.8-8.9); NEUTROPHILS % (AUTO) 57.8 % (43.0-81.0); PLATELET COUNT (AUTO) 683 /CMM (150-450); RED BLOOD CELL COUNT(AUTO) 3.65 MIL/uL (4.5-6.0); WHITE BLOOD COUNT (AUTO) 8.1 K/uL (4.3-11.0)
--- NOTE | 2020-01-31 06:50 | NUR ---
MS RN CLOSING NOTES PATIENT IN BED, ALERT AND ORIENTED X 4. AFEBRILE WITH NO S/S OF DISTRESS OBSERVED. LEFT FOOT G20 IV LINE PATENT AND INFUSING WELL. COMPLAINED OF RIGHT ARM PAIN, OFFERED PAIN MEDICATION BUT HE REFUSED. NON-PHARMACOLOGICAL INTERVENTIONS PROVIDED. RIGHT FOREARM WOUND VAC INTACT WITH CLEAR LIGHT BROWNISH COLORED OUTPUT, 180cc IN AMOUNT. BED LOW AND LOCKED ON SEMI FOWLERS POSITION. CALL LIGHT IN REACH. WILL ENDORSE TO MORNING SHIFT FOR MANUEL.
[2020-01-31 07:26] LABS: CALCIUM, SERUM 9.1 mg/dL (8.5-10.1); CREATININE 0.8 mg/dL (0.6-1.3); POTASSIUM 4.3 mmol/L (3.5-5.1)
[2020-01-31 08:00] VITALS: BP 133/79
--- NOTE | 2020-01-31 08:00 | NUR ---
MS RN OPENING NOTES RECEIVED PATIENT IN BED, ALERT AND ORIENTED X 4. VERBALLY RESPONSIVE AND ABLE TO FOLLOW DIRECTIONS. BREATHING REGULAR AND UNLABORED ON ROOM AIR. LEFT FOOT G20 IV LINE INTACT AND PATENT, INFUSING WELL WITH NO BLEEDING OR S/S OF INFILTRATION NOTED. DENIES PAIN AT THIS TIME. ON NPO FOR RFA WOUND CLOSURE VS WOUND VAC CHANGE .PT IS COMPLIANT. NON-PHARMACOLOGICAL INTERVENTIONS PROVIDED. BED LOW AND LOCKED ON SEMI FOWLERS POSITION. CALL LIGHT IN REACH. WILL CONTINUE TO MONITOR.
[2020-01-31] MEDS: PANTOPRAZOLE 40 MG TABLET.DR PO SCH (09:00)
[2020-01-31] MEDS: ENOXAPARIN SODIUM 40 MG/0.4 ML DISP.SYRIN SQ SCH (09:00)
--- NOTE | 2020-01-31 09:11 | NUR ---
HELD LOVENOX DUE TO SX SCHEDULED TODAY
[2020-01-31] MEDS ORDERED: ANESTHESIA TRAY IN PYXIS 1 EA TRAY MC ONE (14:55)
[2020-01-31] MEDS ORDERED: BACITRACIN 50000 UNITS/VIAL ONE (15:05)
--- NOTE | 2020-01-31 15:20 | NUR ---
brought to O.R for RFA wound closure VS wound vac change procedure.With Stable v/s
[2020-01-31] MEDS ORDERED: MIDAZOLAM HCL 2 MG/2ML VIAL ONE (15:55)
[2020-01-31 16:00] VITALS: BP 142/85
[2020-01-31] MEDS ORDERED: HYDROMORPHONE INJ 2 MG/ML DISP.SYRIN ONE (16:16)
[2020-01-31 16:50] VITALS: BP 140/69
--- NOTE | 2020-01-31 16:50 | NUR ---
PT ARRIVED FROM O.R. S/P PARTIAL WOUND CLOSURE OF RT FOREARM DONE BY DR ROY .WITH HALF SPLINT IN PLACE.WOUND SPONGE AND TUBING CHANGED IN O.R..TODAY AND OBTAINED 90ML SEROSANGUINEOUS WOUND DRAINAGE AND 80ML FROM MY SHIFT WITH A TOTAL OF 170 ML WOUND VAC OUTPUT.PT C/O SEVERE RFA PAIN.WILL ADMINISTER PERCOCET PRN ORDERED. PT EATING DINNER WITH MINIMAL ASSIST.PT WAS ABLE TO MOVE HIS BILATERAL FINGERS. HOOKED PT BACK TO IVF INFUSION OF NS AT 75 ML/HR INFUSING WELL TO THE LT FOOT.V/S BP 140/69 HR 75 RR 18 T 97.8 O2 SAT 99% PA 01/18.
[2020-01-31] MEDS: oxyCODONE/APAP (5/325 MG) 1 UDTAB TABLET PO PRN (18:11)
--- NOTE | 2020-01-31 19:56 | NUR ---
MS/TELE/RN RECEIVED PATIENT ON BED AWAKE, ALERT, ORIENTED, COMFORTABLE, NO C/O PAIN, NO DISTRESS NOTED, LEFT HAND AND RIGHT ARM WITH DRESSING, RT. ARM WITH SLING, WOUND VAC TO RT. ARM, CALL RIGHT IN REACH, NEEDS ATTENDED, WILL MONITOR.
[2020-01-31 20:00] VITALS: BP 141/86
[2020-02-01] MEDS: oxyCODONE/APAP (5/325 MG) 1 UDTAB TABLET PO PRN ×4 (00:59→23:41)
--- NOTE | 2020-02-01 01:02 | NUR ---
RN NOTES COMPLAINED OF BILATERAL ARM PAIN- PERCOCET 2 TABS PO GIVEN ORDERED, V/S STABLE
[2020-02-01 06:36] LABS: BASOPHILS % (AUTO) 0.4 % (0.0-2.0); EOSINOPHILS % (AUTO) 2.4 % (0.0-6.0); HEMATOCRIT 30 % (39-51); HEMOGLOBIN 10.3 g/dL (13.5-17.5); LYMPHOCYTES # (AUTO) 2.2 /CMM (0.8-4.8); MEAN CORPUSCULAR HGB CONC 35 g/dl (31.0-36.0); MEAN CORPUSCULAR VOLUME 86 fL (80-96); MONOCYTES # (AUTO) 0.7 /CMM (0.1-1.30); MONOCYTES % (AUTO) 7.4 % (2.0-12.0); NEUTROPHILS # (AUTO) 5.7 /CMM (1.8-8.9); NEUTROPHILS % (AUTO) 64.8 % (43.0-81.0); PLATELET COUNT (AUTO) 636 /CMM (150-450); RED BLOOD CELL COUNT(AUTO) 3.45 MIL/uL (4.5-6.0); WHITE BLOOD COUNT (AUTO) 8.8 K/uL (4.3-11.0)
[2020-02-01 06:47] LABS: CALCIUM, SERUM 8.7 mg/dL (8.5-10.1); CREATININE 0.8 mg/dL (0.6-1.3); POTASSIUM 3.9 mmol/L (3.5-5.1)
--- NOTE | 2020-02-01 07:30 | NUR ---
07:30 Opening Notes: Received report from night nurse. Patient alert, awake and oriented x4. Patient able to make needs known. No s/s of distress or discomfort, no SOB. Patient assisted with breakfast, tolerated well. Assisted with ADLs and transfers, kept clean and dry. Patient reminded to use call light. Call light within reach.
[2020-02-01 08:00] VITALS: BP 147/93
[2020-02-01] MEDS: PANTOPRAZOLE 40 MG TABLET.DR PO SCH (08:49)
[2020-02-01] MEDS: ENOXAPARIN SODIUM 40 MG/0.4 ML DISP.SYRIN SQ SCH (08:50)
--- NOTE | 2020-02-01 08:58 | NUR ---
WOUND CARE: KCI VAC FUNCTIONING WELL AT 125mmHg CONTINUOUS SETTING WITH APPROX 325cc PINK/STEPHANY DRAINAGE IN CANISTER. DRESSING TO RT ARM DRY AND INTACT.
[2020-02-01 16:00] VITALS: BP 146/81
--- NOTE | 2020-02-01 19:30 | NUR ---
MS/RN OPENING NOTES RECEIVED PATIENT IN BED RESTING. PATIENT IS ALERT AND ORIENTED X 4. NO SIGNS OF SOB OR RESPIRATORY DISTRESS NOTED. PATIENTS BREATHING IS EVEN AND UNLABORED. PATIENT STATES NO PAIN AT THIS TIME. PATIENT HAS IV ACCESS ON LEFT FOOT #[address] G[address] WOUND VAC IN PLACE DRAINING STEPHANY FLUID. SAFETY MEASURES ARE IN PLACE, BED IS LOCKED AND PLACED IN THE LOW POSITION, SIDE RAILS UP X 2. CALL LIGHT IS WITHIN REACH. WILL CONTINUE TO MONITOR THROUGH OUT SHIFT.
--- NOTE | 2020-02-01 19:31 | NUR ---
Closing Note: Patient alert, awake, and oriented x4. Able to make needs known. No s/s of distress or discomfort noted, no c/o pain at this time. No SOB noted. VS WNL. Patient assisted with ADLs and transfers. Kept clean and dry. Bed locked and in lowest position. Fall precautions observed. Reminded patient to use call light. Needs anticipated and attended. Call light within easy reach.
[2020-02-01 20:00] VITALS: BP 142/72
--- NOTE | 2020-02-01 23:45 | NUR ---
MS/RN NOTES PATIENT COMPLAINING OF PAIN ON RIGHT ARM. GIVEN PERCOCET 5/325 MG PO. V/S ARE STABLE, WILL CONTINUE TO MONITOR.
[2020-02-02 06:44] LABS: CALCIUM, SERUM 9.1 mg/dL (8.5-10.1); CREATININE 0.7 mg/dL (0.6-1.3)
[2020-02-02 06:47] LABS: BASOPHILS % (AUTO) 0.6 % (0.0-2.0); EOSINOPHILS % (AUTO) 3.2 % (0.0-6.0); HEMATOCRIT 32 % (39-51); HEMOGLOBIN 10.8 g/dL (13.5-17.5); LYMPHOCYTES # (AUTO) 2.4 /CMM (0.8-4.8); LYMPHOCYTES % (AUTO) 33.4 % (20.0-44.0); MEAN CORPUSCULAR HGB CONC 34 g/dl (31.0-36.0); MEAN CORPUSCULAR VOLUME 85 fL (80-96); MONOCYTES # (AUTO) 0.5 /CMM (0.1-1.30); MONOCYTES % (AUTO) 7.1 % (2.0-12.0); NEUTROPHILS % (AUTO) 55.7 % (43.0-81.0); PLATELET COUNT (AUTO) 690 /CMM (150-450); RED BLOOD CELL COUNT(AUTO) 3.72 MIL/uL (4.5-6.0); WHITE BLOOD COUNT (AUTO) 7.1 K/uL (4.3-11.0)
--- NOTE | 2020-02-02 07:00 | NUR ---
MS/RN CLOSING NOTES PATIENT IN BED RESTING. PATIENT IS ALERT AND ORIENTED X 4. NO SIGNS OF SOB OR RESPIRATORY DISTRESS NOTED. PATIENTS BREATHING IS EVEN AND UNLABORED. PATIENT STATES NO PAIN AT THIS TIME. PATIENT HAS IV ACCESS ON LEFT FOOT #20 G INTACT, PATIENT REFUSED TO HAVE FLUIDS RUNNING. WOUND VAC IN PLACE DRAINING STEPHANY FLUID, OUTPUT 50CC DURING SHIFT, VAC LEVEL AT 425. ALL PATIENT NEEDS HAVE BEEN MET DURING SHIFT. SAFETY MEASURES ARE IN PLACE, BED IS LOCKED AND PLACED IN THE LOW POSITION, SIDE RAILS UP X 2. CALL LIGHT IS WITHIN REACH. WILL ENDORSE CARE TO DAY SHIFT.
--- NOTE | 2020-02-02 07:30 | NUR ---
Report received from night RN. Patient alert, awake and oriented x4. Patient able to make needs known. No s/s of distress or discomfort, no SOB noted. 0905 Patient with c/o pain on his upper extremities, pain scale 10/10. PRN pain medication given, tolerated well. Will continue to monitor patient. 1009 Reassessed patient, pain scale 1/10, no facial grimacing or moaning noted. No s/s of distress or discomfort. Assisted with ADLs and transfers. Fall precautions observed. Call light within reach. Will continue to monitor patient.
[2020-02-02 08:00] VITALS: BP 150/86
[2020-02-02] MEDS: PANTOPRAZOLE 40 MG TABLET.DR PO SCH (09:08)
[2020-02-02] MEDS: ENOXAPARIN SODIUM 40 MG/0.4 ML DISP.SYRIN SQ SCH (09:08)
[2020-02-02] MEDS: oxyCODONE/APAP (5/325 MG) 1 UDTAB TABLET PO PRN (09:09)
--- NOTE | 2020-02-02 10:00 | NUR ---
SEEN PT TOTALLY NUDE IN THE ROOM AND EXPLAINED THAT HE NEEDS TO PUT HIS HOSPITAL GOWN ON OR ATLEAST WEAR UNDERWEAR, PT REFUSED IN SPITE OF OFFERING HOSPITAL GOWN AND DISPOSABLE UNDERWEAR ,PT STATED THAT HE IS ALL BY HIMSELF IN THE ROOM ANYWAY. EXPLAINED THE HOSPITAL POLICY AGAINST NUDITY AND EXPOSURE OF PRIVATE PARTS BUT PT INSISTS TO REFUSE. WILL TRY LATER.
--- NOTE | 2020-02-02 12:36 | NUR ---
Patient refusing IV fluids, explained risks and benefits, offered x3, patient still refusing. Patient noted with good food and fluid intake. Assisted with meals and ADLs. Will continue to monitor patient. Call light within reach. VS WNL.
[2020-02-02 16:00] VITALS: BP 136/78
--- NOTE | 2020-02-02 17:49 | NUR ---
PT STILL TOTALLY NUDE IN THE ROOM AND EXPLAINED THAT HE NEEDS TO PUT HIS HOSPITAL GOWN ON OR ATLEAST WEAR UNDERWEAR, PT REFUSED IN SPITE OF OFFERING HOSPITAL GOWN AND DISPOSABLE UNDERWEAR ,PT STATED THAT HE IS ALL BY HIMSELF IN THE ROOM ANYWAY. EXPLAINED THE HOSPITAL POLICY AGAINST NUDITY AND EXPOSURE OF PRIVATE PARTS BUT PT INSISTS TO REFUSE.
--- NOTE | 2020-02-02 17:56 | NUR ---
PT COVERED HIS PRIVATE PART WITH BLANKET.
--- NOTE | 2020-02-02 18:07 | NUR ---
Closing Notes: Patient in alert, awake, and oriented 4. Patient in bed, no s/s of distress or discomfort, no c/o pain, no s/s of distress or discomfort noted. Noted with 30ml output on surgical drainage. Patient still refusing IV fluids since the start of shift, explained risks and benefits, patient still refusing. Patient insisted that he's been drinking enough fluids and eating well. Patient assisted with ADLs, linens changed. kept clean and dry. Fall precautions observed. Reminded patient to use call light. Call light within easy reach. VS WNL.
[2020-02-02 20:00] VITALS: BP 158/81
--- NOTE | 2020-02-02 20:11 | NUR ---
RECEIVED PT ON BED AWAKE A/O X4 WITH IV ON LEFT FOOT PATENT AND FLUSHED, PT REFUSED IV FLUID AND SAYS HE IS ALREADY EATING AND HE DRINK WELL,RISK AND BENEFITS EXPLAINED RIGHT FOOT WOUND VAC ON PLACE DRESSING WAS DRY AND CLEAN WITH OUTPUT OF SEROSANGUINOUS FLUID, SAFETY MEASURE MAINTAIN BED ON LOWEST POSITION AND LOCKED SIDE RAILS UP CALL LIGHT WITHIN REACH WILL CONT TO MONITOR
[2020-02-02 20:30] VITALS: BP 148/81
[2020-02-02] MEDS: HYDROCODONE/APAP 10/325MG TABLET PO PRN (23:52)
--- NOTE | 2020-02-03 04:53 | NUR ---
ms rn opening note recived patient in bed. a/ox4. tolerating room air. respiratins are even and unlabored. no s/s sob noted. states he is in pain but it is tolerable and will ask for medication later. in no apparent distress. iv access in left foot#20 patent and slaine locked, patient in refusing to be connected to ivf, good po intake. wound vac still maintained in right forearm. bed is low and locked, hob elevated in semi shahid, side rails up x2. jayden light within reach. will continue to monitor. Addendum: 02/04/20 at 0659 by KARAN WILKINSON RN note entered at wrong time. correct time: 02/03/201929
--- NOTE | 2020-02-03 06:59 | NUR ---
PT ON BED RESTING NO SIGN AND SYMPTOMS OF RESPIRATORY DISTRESS MINIMAL PAIN ON SURGERY SITE COMPLAINTS BUT TOLERABLE AT THIS MOMENT,WOUND VAC ON RIGHT FORE ARM SURGERY SITE STILL ON PLACE WITH 25ML SEROSANGUINEOUS OUTPUT NOTED, NO SIGNIFICANT CHANGES ON CONDITION NOTED ALL NEEDS ATTENDED SAFETY MEASURE MAINTAINED BED ON LOWEST POSITION AND LOCKED WILL ENDORSE TO AM SHIFT NURSE
[2020-02-03 07:00] LABS: BASOPHILS % (AUTO) 0.4 % (0.0-2.0); EOSINOPHILS % (AUTO) 2.3 % (0.0-6.0); HEMATOCRIT 34 % (39-51); HEMOGLOBIN 11.4 g/dL (13.5-17.5); LYMPHOCYTES # (AUTO) 1.9 /CMM (0.8-4.8); LYMPHOCYTES % (AUTO) 29.7 % (20.0-44.0); MEAN CORPUSCULAR HGB CONC 34 g/dl (31.0-36.0); MEAN CORPUSCULAR VOLUME 85 fL (80-96); MONOCYTES # (AUTO) 0.4 /CMM (0.1-1.30); MONOCYTES % (AUTO) 6.7 % (2.0-12.0); NEUTROPHILS % (AUTO) 60.9 % (43.0-81.0); PLATELET COUNT (AUTO) 704 /CMM (150-450); RED BLOOD CELL COUNT(AUTO) 3.95 MIL/uL (4.5-6.0); WHITE BLOOD COUNT (AUTO) 6.5 K/uL (4.3-11.0)
--- NOTE | 2020-02-03 07:03 | NUR ---
MS RN OPENING NOTES RECEIVED PT AWAKE IN BED AT THIS TIME. AOX4. PT ABLE TO VERBALIZE NEEDS. NO SOB NOTED, NO S/S OF ANY ACUTE DISTRESS NOTED. NO C/O PAIN AT THIS TIME. RESPIRATIONS ARE EVEN AND UNLABORED WITH EQUAL RISE AND FALL IN CHEST. IV ACCESS NOTED IN LEFT FOOT G#20, INTACT, PATENT AND FLUSHING WELL. RFA WOUND VAC NOTED WITH NO DRAINAGE AT THIS TIME. SAFETY PRECAUTION IN PLACE AND MAINTAINED AT ALL TIMES. BED IN LOWEST LOCKED POSITION, HOB ELEVATED, SIDE RAILS UP X 2, CALL LIGHT WITHIN REACH. WILL CONTINUE TO MONITOR
[2020-02-03 07:12] LABS: CALCIUM, SERUM 9.3 mg/dL (8.5-10.1); CREATININE 0.7 mg/dL (0.6-1.3); POTASSIUM 4.1 mmol/L (3.5-5.1)
[2020-02-03 08:00] VITALS: BP 154/98
[2020-02-03] MEDS: ENOXAPARIN SODIUM 40 MG/0.4 ML DISP.SYRIN SQ SCH (09:02)
[2020-02-03] MEDS: PANTOPRAZOLE 40 MG TABLET.DR PO SCH (09:04)
[2020-02-03] MEDS: HYDROCODONE/APAP 10/325MG TABLET PO PRN (09:33)
--- NOTE | 2020-02-03 09:35 | NUR ---
PT C/O ACHING LEFT/RIGHT ARM PAIN OF 6/10. PT NOTED WITH FACIAL GRIMACE. VS WNL. PER PT REQUEST, NORCO 10-325MG WAS ADMINISTERED AT THIS TIME PER ORDER. WILL CONTINUE TO MONITOR
[2020-02-03 16:00] VITALS: BP 131/74
--- NOTE | 2020-02-03 18:59 | NUR ---
MS RN CLOSING NOTES PT AWAKE IN BED AT THIS. PT REMAINED STABLE THROUGHOUT SHIFT. PT KEPT CLEAN AND DRY. ALL CARE, NEEDS, MEDICATIONS AND TREATMENT ADMINISTERED ANTICIPATED PER ORDER. PAIN MANAGEMENT ADMINISTERED PER ORDER. SAFETY PRECAUTION IN PLACE AND MAINTAINED AT ALL TIMES. BED IN LOWEST LOCKED POSITION, HOB ELEVATED, SIDE RAILS UP X 2, CALL LIGHT WITHIN REACH. WILL ENDORSE TO PATTERN FINISHER NURSE FOR MANUEL
--- NOTE | 2020-02-03 19:30 | NUR ---
ms rn opening note recived patient in bed. a/ox4. tolerating room air. respiratins are even and unlabored. no s/s sob noted. states he is in pain but it is tolerable and will ask for medication later. in no apparent distress. iv access in left foot#20 patent and slaine locked, patient in refusing to be connected to ivf, good po intake. wound vac still maintained in right forearm. bed is low and locked, hob elevated in semi shahid, side rails up x2. jayden light within reach. will continue to monitor.
[2020-02-03 20:00] VITALS: BP 147/74
[2020-02-04] MEDS: HYDROCODONE/APAP 10/325MG TABLET PO PRN ×3 (00:02→15:08)
--- NOTE | 2020-02-04 00:03 | NUR ---
ms rn note administered prn norco 10/325mg for pain 10/18 in both arms. will continue to monitor.
--- NOTE | 2020-02-04 06:59 | NUR ---
ms rn closing note patient is resting in bed. a/ox4. tolerating room air. no resp distress noted. managed papin with norco 10. no distress. iv access maintained in left foot#20 patent and slaine locked. wound vac still maintained in right forearm with no sufficient drainage. bed remains low and locked, hob elevated in semi shahid, side rails up x2. jayden light within reach. will endorse to next shift
--- NOTE | 2020-02-04 07:15 | NUR ---
MS RN OPENING NOTES RECEIVED PT AWAKE IN BED. AOX4. NO SOB OR ANY ACUTE RESPIRATORY DISTRESS NOTED. NO PAIN REPORTED AT THIS TIME. IV SITE NOTED AT LEFT FOOT G#20, INTACT, PATENT AND FLUSHED. RFA WOUND VAC NOTED WITH LESS THAN 100ML DRAINAGE. SAFETY MEASURES OBSERVED. CALL LIGHT WITHIN REACH. BED LOCKED AND AT LOWEST POSITION WITH SIDE RAILS UP X 2. HOB ELEVATED. WILL CONTINUE TO MONITOR
[2020-02-04 07:35] LABS: BASOPHILS % (AUTO) 0.4 % (0.0-2.0); EOSINOPHILS % (AUTO) 2.6 % (0.0-6.0); HEMATOCRIT 33 % (39-51); HEMOGLOBIN 11.5 g/dL (13.5-17.5); LYMPHOCYTES # (AUTO) 1.9 /CMM (0.8-4.8); LYMPHOCYTES % (AUTO) 27.4 % (20.0-44.0); MEAN CORPUSCULAR HGB CONC 34 g/dl (31.0-36.0); MEAN CORPUSCULAR VOLUME 85 fL (80-96); MONOCYTES # (AUTO) 0.4 /CMM (0.1-1.30); MONOCYTES % (AUTO) 5.8 % (2.0-12.0); NEUTROPHILS # (AUTO) 4.3 /CMM (1.8-8.9); NEUTROPHILS % (AUTO) 63.8 % (43.0-81.0); PLATELET COUNT (AUTO) 692 /CMM (150-450); RED BLOOD CELL COUNT(AUTO) 3.93 MIL/uL (4.5-6.0); WHITE BLOOD COUNT (AUTO) 6.8 K/uL (4.3-11.0)
--- NOTE | 2020-02-04 07:49 | NUR ---
WOUND CARE: KCI VAC FUNCTIONING WELL AT 125mmHg CONTINUOUS SETTING TO RT FOREARM WOUND. APPROXIMATELY 30cc PINK DRAINAGE IN CANISTER. HOME VAC UNIT TO BE ORDERED.
[2020-02-04 07:58] LABS: CALCIUM, SERUM 9.3 mg/dL (8.5-10.1); CREATININE 0.8 mg/dL (0.6-1.3); POTASSIUM 4.1 mmol/L (3.5-5.1)
[2020-02-04] MEDS: PANTOPRAZOLE 40 MG TABLET.DR PO SCH (08:39)
[2020-02-04] MEDS: ENOXAPARIN SODIUM 40 MG/0.4 ML DISP.SYRIN SQ SCH (08:44)
[2020-02-04 08:46] VITALS: BP 147/96
--- NOTE | 2020-02-04 10:27 | NUR ---
SIGN PAINTER HELPER SIGN PAINTER HELPER FAXED ALL PAPERWORK TO [facility] FOR THE HOME VAC UNIT AND SUPPLY DELIVERY WITH CONFIRMATION OF RECEIPT OF ALL PAPERWORK BY TE. IF THERE ARE ANY QUESTIONS PLEASE CALL [facility] AT [phone]. CASE MANAGEMENT IS ARRANGING HOME HEALTH FOR PATIENT. PATIENT TO FOLLOW UP WITH DR MCCLAIN AT [facility] AT [phone]. PATIENT WILL CALL AND MAKE AN APPT FOR THIS Tuesday02/07/20.
--- NOTE | 2020-02-04 11:12 | NUR ---
WOUND CARE: KCI VAC DISCONTINUED FOR PT DISCHARGE. DRESSING REMOVED, RT FOREARM CLEANSED WITH NS, XEROFORM DSG APPLIED, COVERED WITH GAUZE, ABD PAD, SECURED WITH KERLIX, SPLINT IN PLACE, SECURED GENTLY WITH BROOKS WRAP. PT TOLERATED WELL. WOUND HAS RED GRANULATION TISSUE AND MEASURES 12CM X 9CM X 0.1CM. THERE IS SOME SWELLING NEAR ELBOW AREA. CANISTER OF WOUND VAC HAD ONLY 30cc PINK DRAINAGE. PT TO FOLLOW UP WITH SURGEON AFTER DISCHARGE. PT HAS PHONE NUMBER OF [facility] ([facility]).
[2020-02-04] MEDS ORDERED: HYDR-4384 PO (11:37)
--- NOTE | 2020-02-04 16:00 | NUR ---
RN CLOSING NOTES DISCHARGED PT TO HOME ACCOMPANIED BY FRIEND. PT IN STABLE CONDITION, VS ARE WNL. MANAGER OF PRODUCTION CALLED TO ASK PT TO WAIT WHILE THEY VERIFY HOME HEALTH. PT REFUSED TO WAIT AND INSISTED ON GOING HOME. PT FORGOT DISCHARGE FOLDER AND PRESCRIPTION AT BEDSIDE TABLE. CALLED YAJAIRA FRIEND AND YAJAIRA CALLED THE PT BUT DID NOT GET AN ANSWER. YAJAIRA PROVIDED PT NUMBER. CALLED THE NUMBER AND PT STATES THAT HE FORGOT AND WILL TRY TO COME BACK ON TUESDAY TO PICK IT UP. CHARGE NURSE IS AWARE, LEFT THE FOLDER AND PRESCRIPTION AT NURSES STATION.
== END 2020-02-04 16:50 | disposition home health service (06) | DRG 501 ==
LOC: ER 13:46 → MED 17:48
PROVIDERS: ADMIT Nurse Practitioner Acute Care; ATTEND Nurse Practitioner Acute Care
PROC: 0PSJ04Z Reposition Left Radius with Internal Fixation Device, Open Approach (ICD-10-PCS; principal; 2020-01-22)
PROC: 0PSH04Z Reposition Right Radius with Internal Fixation Device, Open Approach (ICD-10-PCS; 2020-01-22)
PROC: 0KN90ZZ Release Right Lower Arm and Wrist Muscle, Open Approach (ICD-10-PCS; 2020-01-22)
PROC: 01N40ZZ Release Ulnar Nerve, Open Approach (ICD-10-PCS; 2020-01-22)
PROC: 0PSK04Z Reposition Right Ulna with Internal Fixation Device, Open Approach (ICD-10-PCS; 2020-01-22)
PROC: 3E1U38Z Irrigation of Joints using Irrigating Substance, Percutaneous Approach (ICD-10-PCS; 2020-01-25)
PROC: 2W0CX6Z Change Pressure Dressing on Right Lower Arm (ICD-10-PCS; 2020-01-25)
PROC: 0HQDXZZ Repair Right Lower Arm Skin, External Approach (ICD-10-PCS; 2020-01-31)
PROC: 2W0CX6Z Change Pressure Dressing on Right Lower Arm (ICD-10-PCS; 2020-01-31)
DX: S52.121A Displaced fracture of head of right radius, initial encounter for closed fracture (principal); S52.572A Other intraarticular fracture of lower end of left radius, initial encounter for closed fracture; T79.A11A Traumatic compartment syndrome of right upper extremity, initial encounter; V29.9XXA Motorcycle rider (driver) (passenger) injured in unspecified traffic accident, initial encounter; Y93.9 Activity, unspecified; Y92.410 Unspecified street and highway as the place of occurrence of the external cause; S62.102A Fracture of unspecified carpal bone, left wrist, initial encounter for closed fracture; S52.041A Displaced fracture of coronoid process of right ulna, initial encounter for closed fracture; V89.2XXA Person injured in unspecified motor-vehicle accident, traffic, initial encounter; S62.111A Displaced fracture of triquetrum [cuneiform] bone, right wrist, initial encounter for closed fracture; S80.02XA Contusion of left knee, initial encounter
CPT/HCPCS: 36415; 71045-TC; 73070-TC; 73100-TC; 73200-TC; 80048-TC; 80053-TC; 83735-TC; 84100-TC; 85025-TC; 85730-TC; 87081-TC; A4217; A4565; A6253; A6402; A6407; C1713; C9113; C9803; G0378; J0360; J0690; J1100; J1170; J1650; J1885; J2250; J2270; J2405; J2704; J2765; J3490; J7030; J7060

== ENCOUNTER 2020-02-07 13:15 | Outpatient (CLI) | payer BC ==
[~2020-02-07 13:15] MED LIST: HYDR-4384 PO
[2020-02-07] MEDS ORDERED: LIDOCAINE SOLN 4% 50 ML BOTTLE ONE (13:41)
== END 2020-02-07 23:59 | disposition home or self-care (01) ==
LOC: WOU 13:15
PROVIDERS: ATTEND Surgery
DX: S51.811A Laceration without foreign body of right forearm, initial encounter (principal); V29.00XA Motorcycle driver injured in collision with unspecified motor vehicles in nontraffic accident, initial encounter; Y92.89 Other specified places as the place of occurrence of the external cause; S41.111D Laceration without foreign body of right upper arm, subsequent encounter; V29.00 Motorcycle driver injured in collision with unspecified motor vehicles in nontraffic accident; M79.631 Pain in right forearm
CPT/HCPCS: 11043

== ENCOUNTER 2020-02-11 10:55 | Outpatient (CLI) | payer BC ==
[2020-02-11] MEDS ORDERED: LIDOCAINE SOLN 4% 50 ML BOTTLE ONE (11:26)
== END 2020-02-11 23:59 | disposition home or self-care (01) ==
LOC: WOU 10:55
PROVIDERS: ATTEND Surgery
DX: S51.811A Laceration without foreign body of right forearm, initial encounter (principal); V29.00XA Motorcycle driver injured in collision with unspecified motor vehicles in nontraffic accident, initial encounter; Y92.89 Other specified places as the place of occurrence of the external cause; S41.111D Laceration without foreign body of right upper arm, subsequent encounter; V29.00 Motorcycle driver injured in collision with unspecified motor vehicles in nontraffic accident; M79.601 Pain in right arm
CPT/HCPCS: 11043; 11046; 97606; A6253

== ENCOUNTER 2020-02-14 13:35 | Outpatient (CLI) | payer BC ==
[2020-02-14] MEDS ORDERED: LIDOCAINE SOLN 4% 50 ML BOTTLE ONE (13:49)
[2020-02-14] MEDS ORDERED: CLOTRIMAZOLE 1% 15 GM TUBE TP ONE (14:38)
[2020-02-14] MEDS ORDERED: UREA 10% -AHA 4% CREAM 57 GM TUBE ONE (14:39)
== END 2020-02-14 23:59 | disposition home or self-care (01) ==
LOC: WOU 13:35
PROVIDERS: ATTEND Surgery
DX: S51.811A Laceration without foreign body of right forearm, initial encounter (principal); V29.00XA Motorcycle driver injured in collision with unspecified motor vehicles in nontraffic accident, initial encounter; Y92.89 Other specified places as the place of occurrence of the external cause; S41.111D Laceration without foreign body of right upper arm, subsequent encounter; V29.00 Motorcycle driver injured in collision with unspecified motor vehicles in nontraffic accident; M79.631 Pain in right forearm
CPT/HCPCS: 11043; 97606-TC

== ENCOUNTER 2020-02-15 11:05 | Outpatient (CLI) | payer BC | END 2020-02-15 23:59 | disposition home or self-care (01) | LOC: LAB 11:05 | PROVIDERS: ATTEND Student in an Organized Health Care Education/Training Program | DX: Z01.812 Encounter for preprocedural laboratory examination (principal); Z20.828 Contact with and (suspected) exposure to other viral communicable diseases | CPT/HCPCS: 87426; U0003; C9803 ==

== ENCOUNTER 2020-02-18 11:00 | Outpatient (CLI) | payer BC ==
[2020-02-18] MEDS ORDERED: LIDOCAINE SOLN 4% 50 ML BOTTLE ONE (11:21)
== END 2020-02-18 23:59 | disposition home or self-care (01) ==
LOC: WOU 11:00
PROVIDERS: ATTEND Surgery
DX: S51.811A Laceration without foreign body of right forearm, initial encounter (principal); V29.00XA Motorcycle driver injured in collision with unspecified motor vehicles in nontraffic accident, initial encounter; Y92.89 Other specified places as the place of occurrence of the external cause; S41.111D Laceration without foreign body of right upper arm, subsequent encounter; V29.00 Motorcycle driver injured in collision with unspecified motor vehicles in nontraffic accident; M79.631 Pain in right forearm
CPT/HCPCS: 11043

== ENCOUNTER 2020-02-19 10:21 | Day surgery (SDC) | payer BC ==
[2020-02-19] MEDS ORDERED: BACITRACIN 50000 UNITS/VIAL ONE ×2 (11:36→11:54)
[2020-02-19] MEDS ORDERED: MIDAZOLAM HCL 2 MG/2ML VIAL ONE (11:52)
[2020-02-19] MEDS ORDERED: FENTANYL PF 100MCG/2ML AMPUL ONE (11:53)
[2020-02-19] MEDS ORDERED: BUPIVACAINE 0.5 % PF 150 MG/30 ML VIAL ONE (11:54)
[2020-02-19] MEDS ORDERED: oxyCODONE/APAP (5/325 MG) 1 UDTAB TABLET ONE (14:52)
== END 2020-02-19 16:10 | disposition home or self-care (01) ==
LOC: DS 10:21
PROVIDERS: ATTEND Student in an Organized Health Care Education/Training Program
DX: T84.84XA Pain due to internal orthopedic prosthetic devices, implants and grafts, initial encounter (principal); Y79.3 Surgical instruments, materials and orthopedic devices (including sutures) associated with adverse incidents
CPT/HCPCS: 20610; 24300; 26320; 73070; 73100; J0690; J2250; J2405; J2704; J3010; J3490

== ENCOUNTER 2020-02-21 13:55 | Outpatient (CLI) | payer BC | END 2020-02-21 23:59 | disposition home or self-care (01) | LOC: WOU 13:55 | PROVIDERS: ATTEND Surgery | DX: S51.811A Laceration without foreign body of right forearm, initial encounter (principal); V29.00XA Motorcycle driver injured in collision with unspecified motor vehicles in nontraffic accident, initial encounter; S41.111D Laceration without foreign body of right upper arm, subsequent encounter; V29.00 Motorcycle driver injured in collision with unspecified motor vehicles in nontraffic accident; M79.631 Pain in right forearm | CPT/HCPCS: 11043 ==

== ENCOUNTER 2020-02-25 11:15 | Outpatient (CLI) | payer BC ==
[2020-02-25] MEDS ORDERED: SILVER NITRATE APPLICATOR 1 EA BOX ONE (11:44)
== END 2020-02-25 23:59 | disposition home or self-care (01) ==
LOC: WOU 11:15
PROVIDERS: ATTEND Surgery
DX: S51.811A Laceration without foreign body of right forearm, initial encounter (principal); V29.00XA Motorcycle driver injured in collision with unspecified motor vehicles in nontraffic accident, initial encounter; Y92.89 Other specified places as the place of occurrence of the external cause; S41.111D Laceration without foreign body of right upper arm, subsequent encounter; V29.00 Motorcycle driver injured in collision with unspecified motor vehicles in nontraffic accident; M79.631 Pain in right forearm
CPT/HCPCS: 11043; 97606-TC

== ENCOUNTER 2020-02-28 13:40 | Outpatient (CLI) | payer BC | END 2020-02-28 23:59 | disposition home or self-care (01) | LOC: WOU 13:40 | PROVIDERS: ATTEND Surgery | DX: S51.811A Laceration without foreign body of right forearm, initial encounter (principal); V29.00XA Motorcycle driver injured in collision with unspecified motor vehicles in nontraffic accident, initial encounter; Y92.89 Other specified places as the place of occurrence of the external cause; S41.111D Laceration without foreign body of right upper arm, subsequent encounter; V29.00 Motorcycle driver injured in collision with unspecified motor vehicles in nontraffic accident; M79.631 Pain in right forearm | CPT/HCPCS: 11043; 97606-TC ==

== ENCOUNTER 2020-03-03 11:40 | Outpatient (CLI) | payer BC ==
[2020-03-03] MEDS ORDERED: LIDOCAINE SOLN 4% 50 ML BOTTLE ONE (12:04)
[2020-03-03] MEDS ORDERED: SILVER NITRATE APPLICATOR 1 EA BOX ONE (12:21)
== END 2020-03-03 23:59 | disposition home or self-care (01) ==
LOC: WOU 11:40
PROVIDERS: ATTEND Surgery
DX: S51.811A Laceration without foreign body of right forearm, initial encounter (principal); V29.00XA Motorcycle driver injured in collision with unspecified motor vehicles in nontraffic accident, initial encounter; Y92.89 Other specified places as the place of occurrence of the external cause; S41.111D Laceration without foreign body of right upper arm, subsequent encounter; V29.00 Motorcycle driver injured in collision with unspecified motor vehicles in nontraffic accident; M79.631 Pain in right forearm
CPT/HCPCS: 11043

== ENCOUNTER 2020-03-13 14:30 | Outpatient (CLI) | payer BC ==
[2020-03-13 15:49] LABS: BASOPHILS % (AUTO) 0.4 % (0.0-2.0); EOSINOPHILS % (AUTO) 2.1 % (0.0-6.0); HEMATOCRIT 39 % (39-51); HEMOGLOBIN 12.8 g/dL (13.5-17.5); LYMPHOCYTES # (AUTO) 2.2 /CMM (0.8-4.8); LYMPHOCYTES % (AUTO) 33.7 % (20.0-44.0); MEAN CORPUSCULAR HGB CONC 33 g/dl (31.0-36.0); MEAN CORPUSCULAR VOLUME 84 fL (80-96); MONOCYTES # (AUTO) 0.4 /CMM (0.1-1.30); MONOCYTES % (AUTO) 5.7 % (2.0-12.0); NEUTROPHILS # (AUTO) 3.8 /CMM (1.8-8.9); NEUTROPHILS % (AUTO) 58.1 % (43.0-81.0); PLATELET COUNT (AUTO) 356 /CMM (150-450); RED BLOOD CELL COUNT(AUTO) 4.58 MIL/uL (4.5-6.0); WHITE BLOOD COUNT (AUTO) 6.5 K/uL (4.3-11.0)
[2020-03-13 16:29] LABS: ALBUMIN 4.2 g/dL (3.4-5.0); BILIRUBIN,TOTAL 0.2 mg/dL (0.2-1.0); CALCIUM, SERUM 9.3 mg/dL (8.5-10.1); CREATININE 0.7 mg/dL (0.6-1.3); POTASSIUM 3.8 mmol/L (3.5-5.1); TOTAL PROTEIN, SERUM 7.8 g/dL (6.4-8.2)
== END 2020-03-13 23:59 | disposition home or self-care (01) ==
LOC: WOU 14:30
PROVIDERS: ATTEND Surgery
DX: S51.811A Laceration without foreign body of right forearm, initial encounter (principal); V29.00XA Motorcycle driver injured in collision with unspecified motor vehicles in nontraffic accident, initial encounter; Y92.89 Other specified places as the place of occurrence of the external cause; Z20.828 Contact with and (suspected) exposure to other viral communicable diseases; M79.631 Pain in right forearm
CPT/HCPCS: 11042; 11045; 36415; 80053; 85025; 85610; 85730; 97605; C9803; U0003

== ENCOUNTER 2020-03-17 11:40 | Outpatient (CLI) | payer BC | END 2020-03-17 23:59 | disposition home or self-care (01) | LOC: WOU 11:40 | PROVIDERS: ATTEND Surgery | DX: S51.811A Laceration without foreign body of right forearm, initial encounter (principal); V29.00XA Motorcycle driver injured in collision with unspecified motor vehicles in nontraffic accident, initial encounter; Y92.89 Other specified places as the place of occurrence of the external cause; M79.631 Pain in right forearm | CPT/HCPCS: 11042; 11045 ==

== ENCOUNTER 2020-03-20 10:18 | Day surgery (SDC) | payer BC ==
[2020-03-20] MEDS ORDERED: HYDROMORPHONE INJ 2 MG/ML DISP.SYRIN ONE (12:07)
[2020-03-20] MEDS ORDERED: MIDAZOLAM HCL 2 MG/2ML VIAL ONE (12:07)
[2020-03-20] MEDS ORDERED: BUPIVACAINE 0.25% 75 MG/30 ML VIAL ONE (12:25)
[2020-03-20] MEDS ORDERED: LIDOCAINE 1%-EPI 1:100,000 20 ML VIAL ONE (12:27)
[2020-03-20] MEDS ORDERED: BUPIVACAINE 0.5 % PF 150 MG/30 ML VIAL ONE (13:07)
[2020-03-20] MEDS ORDERED: LIDOCAINE HCL/PF 1% 30 ML SDV ONE (13:08)
== END 2020-03-20 15:00 | disposition home or self-care (01) ==
LOC: DS 10:18
PROVIDERS: ATTEND Surgery
DX: T81.89XA Other complications of procedures, not elsewhere classified, initial encounter (principal); I10 Essential (primary) hypertension; Z79.899 Other long term (current) drug therapy; M79.631 Pain in right forearm
CPT/HCPCS: 15002; 15100; 97605; A6209; A6253; J0690; J1100; J1170; J1885; J2250; J2405; J2704; J3490 ×3

== ENCOUNTER 2020-03-31 10:45 | Outpatient (CLI) | payer BC | END 2020-03-31 23:59 | disposition home or self-care (01) | LOC: WOU 10:45 | PROVIDERS: ATTEND Surgery | DX: Z48.817 Encounter for surgical aftercare following surgery on the skin and subcutaneous tissue (principal); T81.89XA Other complications of procedures, not elsewhere classified, initial encounter; M79.631 Pain in right forearm; Z94.5 Skin transplant status | CPT/HCPCS: 11042; G0463 ==